=== PATIENT | male | born 1940 | race Caucasian/White ===

== ENCOUNTER 2019-04-26 07:58 | Observation (INO) ==
[2019-04-26] MEDS ORDERED: MIDAZOLAM HCL 5 MG/ML 1 ML VIAL ONE (08:31)
[2019-04-26] MEDS ORDERED: LIDOCAINE HCL 1% 20 ML VIAL ONE (08:31)
[2019-04-26] MEDS ORDERED: fentaNYL citrate 100 MCG/2 ML VIAL ONE ×2 (08:31→09:57)
[2019-04-26] MEDS ORDERED: BACITRACIN INJ 50,000 UNIT VIAL ONE (08:31)
[2019-04-26] MEDS ORDERED: BUPIVACAINE 0.25% 30 ML VIAL ONE (08:31)
[2019-04-26] MEDS ORDERED: CEFAZOLIN 250 MG/ML 1 GM VIAL ONE (08:32)
--- NOTE | 2019-04-26 08:51 | History & Physical Report ---
Date of Service April 26, 2019 Assessment & Plan (1) Atrial fibrillation with slow ventricular response: Some slow rates on Holter. Some mild exercise intolerance. Possible return to sinus rhythm with likely AV conduction disease. Will plan dual chamber device. History of Present Illness Chief Complaint: Bradycardia Primary Care Provider: IMELDA Thompson The patient was discovered incidentally on physical to have atrial fibrillation. He has had some slow ventricular rates. NO syncope but some dizziness. Some mild exercise intolerance manifest by dyspnea. Some limitations due to knee pain. Allergies Allergy/AdvReac Type Severity Reaction Status Date / Time No Known Allergies Allergy Unverified 04/26/19 08:25 Home Medications Home Medications Medication Instructions Recorded Confirmed Type apixaban [Eliquis] 5 mg PO BID 04/26/19 04/26/19 History cholecalciferol (vitamin D3) 25 mcg PO BID 04/26/19 04/26/19 History [Vitamin D3] rosuvastatin 40 mg PO DAILY 04/26/19 04/26/19 History Past Med/Surg History Social History Beliefs That Will Affect Care: None Current Living Situation: Alone Other Information That Helps Us Care for You: No Feels Safe at Home: Yes Safety Concerns: Feels Safe At This Time Smoking Status: Never smoker Hx Alcohol Use: Yes Alcohol type: wine Hx Substance Use: No Review of Systems Review of Systems: Per HPI. Some mild knee pain. Physical Exam Physical Exam: Alert. Appropriate. HEENT: normal. Lungs: clear Cardiac: Irregular. No murmurs Extremities: No edema Results & Data Vital Signs (Past 12 Hours) Vital Signs Temp Pulse Resp BP Pulse Ox 04/26/19 08:10 37.2 C 69 16 152/66 H 96 Diagnostic Findings Echo demonstrates normal LV systolic fucntion
--- NOTE | 2019-04-26 08:52 | Pre Anesthesia Assessment ---
Date of Service April 26, 2019 Pre Sedation Assessment Vital Signs Temp Pulse Resp BP Pulse Ox 04/26/19 08:10 37.2 C 69 16 152/66 H 96 Cardiovascular + irregularly irregular Respiratory + respiratory effort normal Pre-Sedation Airway Assessment Smoking Status: Never smoker Hx Sleep Apnea: No Hx Difficult Intubation: No Short, Thick Neck: No Thyromental Distance: > or= 3.5 Finger Breadths Oral Cavity: + WNL Mallampati Class: III ASA: ASA3 NPO Status Date of Last Intake of Fluids: 04/25/19 Time of Last Intake of Fluids: 18:30 Date of Last Intake of Solid Food: 04/25/19 Time of Last Intake of Solid Foods: 18:30 Procedure Planning Contraindications for Sedation: none Current Medications Reviewed: Yes Notes The planned sedation has been discussed with the patient. Informed Consent was obtained. I have identified the patient, determined the appropriateness of sedation and have assessed the patient immediately prior to the procedure. All medicine(s) and interventions are by my order.
--- NOTE | 2019-04-26 10:25 | Post Anesthesia Assessment ---
Date of Service April 26, 2019 Post Sedation Assessment Vital Signs Temp Pulse Resp BP Pulse Ox 04/26/19 08:10 37.2 C 69 16 152/66 H 96 Recovery Score Activity: Moves 4 extremities Respiration: Deep Breath/Cough Circulation: +/-20% PreAnes Value Consciousness: Fully Awake Oxygen Saturation: > 92% On Room Air Discharge Sedation Level of Care: Fast Track Phase II Post Sedation Plan On clinical assessment, the patient appears to have tolerated the sedation without complications. Patient is recovering as anticipated. Patient will continue to be monitored by nursing and may be discharged when sedation discharge criteria are met per below protocol. Upon Completions of procedure up to 15 minutes continue every 5 minute vital signs and the P.A.R. score; then discharge to a Phase I or Fast Track to Phase II per the following guidelines: * Discharge Patient to appropriate Phase II area if PAR is 8 or greater or return to pre- procedure baseline. The post - procedure orders will be as directed. * If PAR score is less than 8 or not return to pre-procedure baseline then patient will follow Phase I monitoring till PAR is reached for Phase II. The Phase I may be done in procedure room or may call to secure a Phase I area. * If naloxone or flumazenil are used for reversal, hold in Phase I for continued monitoring from when last reversal dose was given for a minimum of 60 minutes or longer pending the nurse and/or physician discretion of patient condition before discharge to Phase II. Please call the Sedation Physician to re-evaluate and complete post-note for discharge to Phase II area. Do NOT discharge from procedure sedation or Phase 1 until post- sedation evaluation note is complete by procedure /sedation MD Sedation Discharge Instructions to be given to the patient at discharge to home.
[2019-04-26] MEDS ORDERED: OXYCODONE HCL IR 5 MG TAB (IMMEDIATE RELEASE) PO PRN (10:29)
[2019-04-26] MEDS ORDERED: ACETAMINOPHEN 325 MG TAB PO PRN (10:29)
--- NOTE | 2019-04-26 10:29 | Procedure Note ---
Procedure Note Date of Service April 26, 2019 Note Procedure performed: Implantation of dual-chamber permanent pacemaker Staff bladder trimmer: Ulises Pizarro MD Indication: The patient is a 78-year-old gentleman with newly discovered atrial fibrillation and associated slow ventricular rates. He does have some element of exercise intolerance and heart rates less than 40 at rest. Based on the symptoms he is felt be good candidate for permanent pacing due to symptomatic nonreversible AV node dysfunction. Dual-chamber device was selected as there may be an opportunity for cardioversion and anglican of sinus rhythm. In that setting we will maintain AV synchrony and provide atrial therapies. Procedure in detail: The patient was informed of the risks benefits and alternatives to the intended procedure and she wished to proceed. He was taken to the electrophysiology suite in a fasting state. A preoperative antibiotic had been administered. The patient was monitored electrocardiographically throughout today's procedure and conscious sedation was administered per protocol. The left upper pectoral area is prepped and draped in usual sterile fashion. This area was anesthetized using subcutaneous administration of a xylocaine solution. An incision was made at this site and carried down to the prepectoralis fascia using sharp dissection. Electrocautery was also employed for dissection as well as for hemostasis. A device pocket was fashioned tissues above the pectoralis muscle. Subsequent to this maneuver the left axillary vein was accessed using modified Seldinger technique. Sheaths were placed over guidewires at this site and used to facilitate passage of the pacing leads to the respective chambers under fluoroscopic guidance. This included right atrial and right ventricular leads. Adequate sensing and threshold parameters were obtained prior to Active fixation of the leads to the endocardial surface. The proximal portion leads were then sutured the prepectoral fascia using nonabsorbable suture. The device pocket was irrigated with antibiotic solution. The leads were then attached to the device. The device and leads were then placed in the pocket and pocket was closed in 3 layers of absorbable suture. Steri-Strips and sterile dressing were applied. The device was tested noninvasively prior to conclusion the procedure. The patient tolerated procedure well there no immediate complications. Equipment used: New pulse generator: Medical [employer]. Model number: [id number] serial number [id number] Right atrial lead: Medical Genetics Director [employer]. Model number: [id number] serial number [id number] Right ventricular lead: Medical [employer] Director [employer]. Model number: 5076 serial number [id number] Measured data: Right atrial lead: Patient was in atrial fibrillation at the time of the procedure. Fib waves measure 0.5 mV. Pacing impedance was 475 ohms Right ventricular lead: R waves measured 11.25 mV. Pacing threshold was 0.875 V at 0.4 ms with a pacing impedance of 646 ohms Impression: Successful implantation of dual-chamber permanent pacemaker Coding
[2019-04-26] MEDS: CEFAZOLIN 2000MG 2,000 MG/15 ML SYR IV SCH (17:58)
[2019-04-27] MEDS: CEFAZOLIN 2000MG 2,000 MG/15 ML SYR IV SCH ×2 (02:57→10:34)
--- NOTE | 2019-04-27 07:50 | XRay Report ---
XR chest 2V PA/lateral CLINICAL HISTORY: Chest x-ray for pacemaker placement COMPARISON STUDY: No previous studies for comparison. FINDINGS: There is a left subclavian dual-chamber central venous pacemaker present. Electrode positio n is unremarkable. There is no pneumothorax. There is no failure. There is no lobar consolidation. Pa renchymal opacities at the level the right cardiophrenic angle nonspecific likely represent atelectas is or scarring. IMPRESSION: No evidence of pneumothorax status post placement of a left subclavian dual-chamber centr al venous pacemaker. Electronically signed by: Mateo Coates M.D. 04/27/2019 7:49 AM
[2019-04-27] MEDS ORDERED: ROSUVASTATIN CALCIUM 20 MG TAB PO SCH (09:00)
--- NOTE | 2019-04-27 16:44 | Discharge Summary ---
Date of Service April 27, 2019 Admission HPI Per Admitting Provider The patient was discovered incidentally on physical to have atrial fibrillation. He has had some slow ventricular rates. NO syncope but some dizziness. Some mild exercise intolerance manifest by dyspnea. Some limitations due to knee pain. Principal Diagnosis q Discharge Exam Device implant site appear to be healing well. Minor ecchymoses. No erythema. No hematoma. No drainage. Discharge Data Allergies Allergy/AdvReac Type Severity Reaction Status Date / Time No Known Allergies Allergy Unverified 04/26/19 08:25 Procedures Performed Operation Date: 04/26/19 09:00 Actual Procedures p Pacer with A/V Leads (Dual) - Riki Pizarro MD Ordered Studies 04/26/19 06:42 CL Cath Imgs for PACS use only Routine Hospital Course (1) Atrial fibrillation with slow ventricular response: On the day of admission the patient underwent implantation of dual-chamber permanent pacemaker. There were no immediate complications. The following morning he was noted to have a normal chest x-ray without evidence of complication. Device interrogation revealed normal function of both the atrial and ventricular leads. Total Time Total Time Spent Total Time Spent (In Minutes): 10 Total Time Includes: Examination of the Patient, Discharge Planning and Medication Reconciliation Discharge Plan Discharge Items Patient Disposition: Home - Self-Care Reason For Visit: DCP Discharge Diagnosis: Symptomatic bradycardia Activity: Per Instructions section Activity Comment: No lifting left arm above the shoulder or behind the neck for 6 weeks Lifting: No more than 10 pounds Bathing: Keep incision dry Bathing Comment: Keep incision dry and Steri-Strips intact until follow-up next week. Driving/Machine Use: Resume 1 day after discharge Non-emergency contact: Sampler Tester Call non-emergency contact if: your pain is worsening, you have a fever, your wound has increased redness, your wound has increased drainage and your wound pain has increased Follow-up/Referrals: Mena Whittaker CRNP [Primary Care Provider] - Diet: Heart Healthy Addtl Attending Provider Instructions: Resume Eliquis tomorrow, 04/28/2019 Pending Studies at Discharge: No Stand-Alone Forms: My [employer], Smoking Cessation Medications and DC Order Prescriptions: Continued Eliquis 5 mg Tablet 5 mg PO BID RF: 0 rosuvastatin 40 mg Tablet 40 mg PO DAILY RF: 0 cholecalciferol (vitamin D3) [Vitamin D3] 25 mcg (1,000 unit) Tablet 25 mcg PO BID RF: 0 Discharge Orders: Discharge Order (Routine); Ordered 04/27/19 Ordered By: Riki Pizarro Admission Data Admit Date/Time: 04/26/19 09:44 Attending Provider: Riki Pizarro Admit Provider: Riki Pizarro Primary Care Provider: eMna Whittaker Other Interventions: Discharge Summary Assessment (RN) Last Done: 04/27/19 10:51 DC Date/Time DO NOT enter until pt leaves facility: 04/27/19 11:15
== END 2019-04-27 11:15 | disposition home or self-care (01) ==
LOC: 2S 07:58 → EP 07:58

== ENCOUNTER 2019-12-29 16:51 | Inpatient (IN) ==
--- NOTE | 2019-12-29 17:15 | XRay Report ---
XR chest 1V portable CLINICAL HISTORY: Atypical chest pain COMPARISON STUDY: 04/27/2019 FINDINGS: The heart is the upper limits of normal in size. There is mild elevation of interstitium. T here is a small right pleural effusion. There are bibasilar nodular airspace opacities. Diagnostic co nsiderations include pneumonia, metastatic disease, drug reaction, or atypical appearance of pulmonar y edema. Clinical and radiographic follow-up is recommended.[ IMPRESSION: 1. Bilateral nodular airspace opacities within the lower lung zones bilaterally. Diagnostic considera tions include pneumonia, metastatic disease, drug reaction, or atypical appearance of pulmonary edema . 2. Small right pleural effusion 3. Clinical and radiographic follow-up is advocated ACT 112: Negative or not required by law. Electronically signed by: Mateo Coates M.D. 12/29/2019 5:14 PM
--- NOTE | 2019-12-29 17:21 | Emergency Department Note ---
Impression & Plan Metastatic cancer, Colon cancer, Transaminitis, Elevated bilirubin ED Provider Note NAME: REGINALD REGAN AGE: 79 SEX: M : 1940 ARRIVES VIA: Walk-In INFORMANT: Patient ED PROVIDER(S): Blair Costa DO CHIEF COMPLAINT: Left shoulder and neck pain as well as abdominal pain HPI: Patient is a 79-year-old male with a past medical history of hyperlipidemia , A. fib with a pacemaker and hypertension who presents the ER for abdominal pain and left neck and shoulder pain. About 3 weeks ago he started with left neck and shoulder pain. He was initially worse with movement of his head. Notes also worse with movement of the left upper extremity. Is tender to palpation. He has not taken anything for this pain. It improves with rest. Describes the pain as an 8 out of 10. Is sharp and stabbing. He denies any numbness or weakness. He has abdominal pain which is been present for the past week. Is periumbilical. He notes that he fills up a lot quicker than usual. He denies any vomiting or diarrhea. Bowel movement in the past 24 hours. He also admits to dysuria which is been present for the past week as well. No urgency or frequency. ROS: See above HPI for pertinent positives & negatives. A total of 10 systems r eviewed and were otherwise negative. PAST MEDICAL HISTORY:See Below PAST SURGICAL HISTORY:See Below FAMILY HISTORY:See Below SOCIAL HISTORY:See Below HOME MEDICATIONS:See Below ALLERGIES:See Below VITALS:See Below PHYSICAL EXAMINATION: GENERAL: Sitting up in bed, alert, well appearing, well nourished, no distress, non-toxic EYE EXAM: normal conjunctiva. OROPHARYNX: no exudate, no erythema, lips, buccal mucosa, and tongue normal and mucous membranes are moist NECK: Tenderness throughout the left paraspinal cervical region tracking to the left humeral head. Worse with axial rotation flexion-extension of the head. LUNGS: Clear to auscultation. Normal chest wall mechanics HEART: no murmurs, S1 normal and S2 normal ABDOMEN: abdomen soft, non-tender, normo-active bowel sounds, no masses, no rebound or guarding. BACK: Back is symmetrical on inspection and there is no deformity, no midline tenderness, no CVA tenderness. SKIN: no rashes and no bruising UPPER EXTREMITIES: Flexion-extension of the left shoulder, elbow wrist and grasp 5 out of 5. Radial pulse 2 out of 4. Mild amount of pain with range of motion of left shoulder including abduction and flexion extension of the shoulder as well as palpation of the proximal humeral head LOWER EXTREMITIES: No pitting edema. NEURO EXAM: Normal sensorium, cranial nerves II-XII grossly intact, normal speech, no gross weakness of arms, no gross weakness of legs. MEDICAL DECISION MAKING: Patient is a 79-year-old male who presents the ER for left shoulder pain and abdominal pain. Shoulder pain is worse with movement of the neck and now left upper extremity. Acutely tender throughout the musculature. Consistent with musculoskeletal pain. Abdominal pain has been getting worse. IV was established blood work was obtained. Labs show no significant leukocytosis or anemia. INR was unremarkable. BMP with a slightly low calcium. LFTs were significantly elevated at 350 and 152. Bilirubin is now elevated at 3. It was previously unremarkable. Troponin was negative. UA with bilirubin. CT abdomen pelvis shows likely metastatic disease. Chest x-ray showed infiltrates in the chest versus metastatic disease. Gallbladder was unremarkable. With a fever of 37.9, worsening transaminitis and elevated bilirubin question if there could be a retained stone although unlikely with a normal CT. Did feel was prudent for further evaluation. Patient was given IV antibiotics. Admitted for further work-up. Triage Nursing notes reviewed. Prior medical records reviewed Vital Signs: reviewed and remarkable for febrile Differential diagnosis: Differential diagnosis includes etiologies such as sepsis, UTI, pneumonia, metabolic, electrolyte abnormalities, cardiac sources, intracerebral event, toxicologic, neurological, as well as others were entertained. ER treatment provided: See below Diagnostics interpreted by me: ECG: Ventricularly paced rate 81 Left axis DWI in septal leads No PVCs Prolonged QTC Cardiac Monitoring: An order was placed for continuous cardiac monitoring. The monitor shows a rate of 82 with sinus rhythm. Laboratory studies: As stated above and show below. Imaging studies: CT abdomen pelvis with metastatic disease and multiple other findings. Consultation(s): Discussed with the hospitalist for admission. ED COURSE: Procedures: none Critical Care: None Past Med/Surg History Medical History (Updated 12/29/19 @ 20:33 by Blair Costa DO) Pacemaker 2019 Social History (Updated 12/26/19 @ 14:05 by Amena Andrews RN) Smoking Status: Never smoker Hx Alcohol Use: Yes Alcohol type: wine Alcohol type Comment: 2 vu a day Alcohol Intake Frequency: 4 or More x per/Week Hx Substance Use: No Preferred Language: Austrian Beliefs That Will Affect Care: None marital status: Current Living Situation: Alone current occupational status: retired How many Children do You have: 0 Feels Safe at Home: Yes Allergies Allergies Allergy/AdvReac Type Severity Reaction Status Date / Time No Known Drug Allergies Allergy Verified 12/29/19 18:00 Home Meds Home Medications Medication Instructions Recorded Confirmed Eliquis 5 mg PO BID 04/26/19 12/29/19 cholecalciferol (vitamin D3) 25 mcg PO BID 04/26/19 12/29/19 [Vitamin D3] omeprazole 40 mg capsule,delayed 40 mg PO DAILY 12/26/19 12/29/19 release Results & Data (ED) Vital Signs Vital Signs - 24 hr 12/29/19 16:53 12/29/19 17:02 12/29/19 17:10 Temperature 37.9 C H Temperature Source Oral Pulse Rate 96 H 83 78 Pulse Rate [Right Finger] Pulse Rate from SpO2 Sensor Respiratory Rate 18 Respiratory Effort / Characteristics Respiratory Depth Blood Pressure 120/80 Blood Pressure [Right Arm] Blood Pressure Mean 93 Blood Pressure Mean [Right Arm] Pulse Oximetry 95 Oxygen Delivery Method Room Air Room Air Room Air Sepsis Recent Fever Within 48 Hours No Sepsis New/Unexplained Change in Mental Status No Sepsis Action Taken by Nursing No Action Required 12/29/19 17:17 12/29/19 17:20 12/29/19 17:30 Temperature Temperature Source Pulse Rate 79 80 Pulse Rate [Right Finger] Pulse Rate from SpO2 Sensor 74 82 72 Respiratory Rate Respiratory Effort / Characteristics Respiratory Depth Blood Pressure 115/70 Blood Pressure [Right Arm] Blood Pressure Mean 75 Blood Pressure Mean [Right Arm] Pulse Oximetry 96 96 95 Oxygen Delivery Method Room Air Room Air Room Air Sepsis Recent Fever Within 48 Hours Sepsis New/Unexplained Change in Mental Status Sepsis Action Taken by Nursing 12/29/19 17:31 12/29/19 17:40 12/29/19 17:50 Temperature Temperature Source Pulse Rate 73 Pulse Rate [Right Finger] 72 Pulse Rate from SpO2 Sensor 73 79 Respiratory Rate 20 Respiratory Effort / Characteristics Non-Labored Respiratory Depth Normal Blood Pressure Blood Pressure [Right Arm] 115/70 Blood Pressure Mean Blood Pressure Mean [Right Arm] 85 Pulse Oximetry 96 96 96 Oxygen Delivery Method Room Air Room Air Room Air Sepsis Recent Fever Within 48 Hours Sepsis New/Unexplained Change in Mental Status Sepsis Action Taken by Nursing 12/29/19 17:56 12/29/19 18:00 12/29/19 18:01 Temperature Temperature Source Pulse Rate 94 H 71 70 Pulse Rate [Right Finger] Pulse Rate from SpO2 Sensor Respiratory Rate 29 H Respiratory Effort / Characteristics Respiratory Depth Blood Pressure 98/81 L 122/87 Blood Pressure [Right Arm] Blood Pressure Mean 86 92 Blood Pressure Mean [Right Arm] Pulse Oximetry Oxygen Delivery Method Room Air Room Air Room Air Sepsis Recent Fever Within 48 Hours Sepsis New/Unexplained Change in Mental Status Sepsis Action Taken by Nursing 12/29/19 18:10 12/29/19 18:30 12/29/19 19:12 Temperature Temperature Source Pulse Rate 70 85 Pulse Rate [Right Finger] 86 Pulse Rate from SpO2 Sensor 73 78 Respiratory Rate 24 22 19 Respiratory Effort / Characteristics Non-Labored Spontaneous Respiratory Depth Normal Blood Pressure Blood Pressure [Right Arm] 146/73 H Blood Pressure Mean Blood Pressure Mean [Right Arm] 97 Pulse Oximetry 96 97 95 Oxygen Delivery Method Room Air Room Air Room Air Sepsis Recent Fever Within 48 Hours Sepsis New/Unexplained Change in Mental Status Sepsis Action Taken by Nursing Laboratory Data Result diagrams: 12/29/19 17:25 12/29/19 17:25 Lab Results 12/29/19 12/29/19 12/29/19 Range/Units 17:25 17:25 17:25 WBC 10.36 (4.8-10.8) K/uL RBC 4.63 L (4.7-6.1) M/uL Hgb 13.6 L (14.0-18.0) g/dL Hct 39.8 L (42-52) % MCV 86.0 (80-100) fL MCH 29.4 (25-34) pg MCHC 34.2 (32-36) g/dL RDW Std Deviation 49.0 H (36.4-46.3) fL RDW Coeff of Marcel 15.6 H (11.5-14.5) % Plt Count 472 H (130-400) K/uL MPV 10.9 H (7.4-10.4) fL Immature Gran % (Auto) 0.5 % Neut % (Auto) 68.5 % Lymph % (Auto) 18.8 % [place] % (Auto) 11.8 % Eos % (Auto) 0.3 % Baso % (Auto) 0.1 % Neut # (Auto) 7.10 H (1.4-6.5) K/uL Lymph # (Auto) 1.95 (1.2-3.4) K/uL [place] # (Auto) 1.22 H (0.11-0.59) K/uL Eos # (Auto) 0.03 (0-0.5) K/uL Baso # (Auto) 0.01 (0-0.2) K/uL Immature Gran # (Auto) 0.05 H (0.00-0.02) K/uL PT 11.8 (9.0-12.0) Seconds INR 1.1 (0.9-1.1) APTT 30.5 (21.0-31.0) Seconds PTT Ratio 1.1 Sodium 136 (136-145) mmol/L Potassium 4.0 (3.5-5.1) mmol/L Chloride 104 (98-107) mmol/L Carbon Dioxide 24 (21-32) mmol/L Anion Gap 8.0 (3-11) BUN 13 (7-18) mg/dl Creatinine 0.95 (0.6-1.4) mg/dl Est Cr Clr Drug Dosing 65.1 ml/min Est GFR ( Amer) 87.9 Est GFR (Non-Af Amer) 75.8 BUN/Creatinine Ratio 13.7 (10-20) Glucose 98 (70-99) mg/dl Calcium 8.4 L (8.5-10.1) mg/dl Total Bilirubin 2.9 H (0.2-1) mg/dl AST 351 H (15-37) U/L ALT 152 H (12-78) U/L Alkaline Phosphatase 950 H (45-117) U/L Troponin I < 0.015 (0-0.045) ng/ml Total Protein 6.5 (6.4-8.2) gm/dl Albumin 2.3 L (3.4-5.0) gm/dl Globulin 4.2 H (2.5-4.0) gm/dl Albumin/Globulin Ratio 0.5 L (0.9-2) Lipase 150 (73-393) U/L Urine Color Urine Appearance (Clear) Urine pH (4.5-7.5) Ur Specific [place] (1.000-1.030) Urine Protein (Negative) Urine Glucose (UA) (Negative) Urine Ketones (Negative) Urine Blood (Negative) Urine Nitrite (Negative) Urine Bilirubin (Negative) Urine Urobilinogen (Negative) Ur Leukocyte Esterase (Negative) 12/29/19 Range/Units 19:20 WBC (4.8-10.8) K/uL RBC (4.7-6.1) M/uL Hgb (14.0-18.0) g/dL Hct (42-52) % MCV (80-100) fL MCH (25-34) pg MCHC (32-36) g/dL RDW Std Deviation (36.4-46.3) fL RDW Coeff of Marcel (11.5-14.5) % Plt Count (130-400) K/uL MPV (7.4-10.4) fL Immature Gran % (Auto) % Neut % (Auto) % Lymph % (Auto) % [place] % (Auto) % Eos % (Auto) % Baso % (Auto) % Neut # (Auto) (1.4-6.5) K/uL Lymph # (Auto) (1.2-3.4) K/uL [place] # (Auto) (0.11-0.59) K/uL Eos # (Auto) (0-0.5) K/uL Baso # (Auto) (0-0.2) K/uL Immature Gran # (Auto) (0.00-0.02) K/uL PT (9.0-12.0) Seconds INR (0.9-1.1) APTT (21.0-31.0) Seconds PTT Ratio Sodium (136-145) mmol/L Potassium (3.5-5.1) mmol/L Chloride (98-107) mmol/L Carbon Dioxide (21-32) mmol/L Anion Gap (3-11) BUN (7-18) mg/dl Creatinine (0.6-1.4) mg/dl Est Cr Clr Drug Dosing ml/min Est GFR ( Amer) Est GFR (Non-Af Amer) BUN/Creatinine Ratio (10-20) Glucose (70-99) mg/dl Calcium (8.5-10.1) mg/dl Total Bilirubin (0.2-1) mg/dl AST (15-37) U/L ALT (12-78) U/L Alkaline Phosphatase (45-117) U/L Troponin I (0-0.045) ng/ml Total Protein (6.4-8.2) gm/dl Albumin (3.4-5.0) gm/dl Globulin (2.5-4.0) gm/dl Albumin/Globulin Ratio (0.9-2) Lipase (73-393) U/L Urine Color [place] Urine Appearance Clear (Clear) Urine pH 5.0 (4.5-7.5) Ur Specific [place] 1.015 (1.000-1.030) Urine Protein Negative (Negative) Urine Glucose (UA) Negative (Negative) Urine Ketones Negative (Negative) Urine Blood Negative (Negative) Urine Nitrite Negative (Negative) Urine Bilirubin 2+ H (Negative) Urine Urobilinogen Positive H (Negative) Ur Leukocyte Esterase Negative (Negative) Administered Medications Discontinued Medications Sodium Chloride (Nss 1000ml) 1,000 mls @ 999 mls/hr IV .Q1H1M ONE Stop: 12/29/19 20:08 Last Admin: 12/29/19 19:19 Dose: 999 mls/hr Documented by: [id number] Ioversol (Ioversol 100ml) 93 ml IV ONCE ONE Stop: 12/29/19 18:24 Last Admin: 12/29/19 18:24 Dose: 93 ml Documented by: [id number] Discharge Plan Visit Data Chief Complaint: Chest Pain Stated Complaint: CHEST PAIN, LEFT ARM PAIN, CARDIAC Hx ED Provider: Blair Costa Discharge Problem: Metastatic cancer, Colon cancer, Transaminitis, Elevated bilirubin Forms Stand Alone Forms: [facility] Prescriptions Prescriptions: No Action omeprazole 40 mg capsule,delayed release(DR/EC) 40 mg PO DAILY RF: 0 Eliquis 5 mg Tablet 5 mg PO BID RF: 0 cholecalciferol (vitamin D3) [Vitamin D3] 25 mcg (1,000 unit) Tablet 25 mcg PO BID RF: 0 Discharge Problem: Metastatic cancer Qualifiers: Area of secondary neoplastic involvement: unspecified site Qualified Code(s): C79.9 - Secondary malignant neoplasm of unspecified site Colon cancer Qualifiers: Colon location: unspecified part of colon Qualified Code(s): C18.9 - Malignant neoplasm of colon, unspecified
[2019-12-29 17:37] LABS: Basophils # (auto) 0.01 K/uL (0-0.2); Basophils % (auto) 0.1 %; Eosinophils # (auto) 0.03 K/uL (0-0.5); Eosinophils % (auto) 0.3 %; Hematocrit (blood only) 39.8 % (42-52); Hemoglobin 13.6 g/dL (14.0-18.0); Immature Granulocytes # (auto) 0.05 K/uL (0.00-0.02); Immature Granulocytes % (auto) 0.5 %; Lymphocytes # (auto) 1.95 K/uL (1.2-3.4); Lymphocytes % (auto) 18.8 %; Mean Corpuscular Hemoglobin 29.4 pg (25-34); Mean Corpuscular Hgb Conc 34.2 g/dL (32-36); Mean Platelet Volume 10.9 fL (7.4-10.4); Monocytes # (auto) 1.22 K/uL (0.11-0.59); Monocytes % (auto) 11.8 %; Neutrophils % (auto) 68.5 %; Platelet Count 472 K/uL (130-400); RDW Coefficient of Variation 15.6 % (11.5-14.5); Red Blood Count 4.63 M/uL (4.7-6.1); White Blood Count 10.36 K/uL (4.8-10.8)
[2019-12-29 17:47] LABS: INR 1.1 (0.9-1.1); Partial Thromboplastin Ratio 1.1; Partial Thromboplastin Time 30.5 Seconds (21.0-31.0); Prothrombin Time 11.8 Seconds (9.0-12.0)
[2019-12-29 17:52] LABS: Alanine Aminotransferase 152 U/L (12-78); Albumin Level 2.3 gm/dl (3.4-5.0); Aspartate Aminotransferase 351 U/L (15-37); BUN Creatinine Ratio 13.7 (10-20); Blood Urea Nitrogen 13 mg/dl (7-18); Calcium 8.4 mg/dl (8.5-10.1); Carbon Dioxide 24 mmol/L (21-32); Chloride 104 mmol/L (98-107); Creatinine Clr Calc Pharmacy 65.1 ml/min; Est GFR (African American) 87.9; Est GFR (Non-African American) 75.8; Glucose 98 mg/dl (70-99); Lipase 150 U/L (73-393); Sodium 136 mmol/L (136-145)
[2019-12-29 17:57] LABS: Albumin Globulin Ratio 0.5 (0.9-2); Alkaline Phosphatase 950 U/L (45-117); Bilirubin,Total 2.9 mg/dl (0.2-1); Globulin 4.2 gm/dl (2.5-4.0); Total Protein 6.5 gm/dl (6.4-8.2); Troponin I < 0.015 ng/ml (0-0.045)
[2019-12-29] MEDS ORDERED: IOVERSOL 100ml IV ONE ×2 (18:23)
--- NOTE | 2019-12-29 18:43 | CT Scan Report ---
CT abd pelvis IV con only CLINICAL HISTORY: Fever, periumbilical abdominal pain COMPARISON STUDY: 11/29/2019 TECHNIQUE: Patient was scanned in a dynamic helical fashion during intravenous administration of 93 c c of Optiray 320. A dose lowering technique was utilized adhering to the principles of ALARA. CT DOSE: 715.97 mGy.cm FINDINGS: Lower chest: There is been interval increase in the size and number of the multiple bilateral pulmona ry nodules suspicious for metastatic disease. There is a small right pleural effusion. Liver: There is interval increase in the size and number of the multiple space-occupying hepatic mass es indicative of metastatic disease. Gallbladder: The gallbladder is normal in size with pericholecystic edema Spleen: Mildly enlarged measuring 13.4 cm Pancreas: No intrinsic pancreatic masses are visualized Adrenal glands: Unremarkable. Kidneys: There are persistent large left renal cysts measuring up to 14 cm in diameter. Bowel: There is a 6 cm mass involving the proximal ascending colon. There is no evidence of acute div erticulitis. There is no evidence of acute appendicitis. Peritoneum: There is low volume ascites. There is no free air. There is a fat-containing umbilical he rnia. There is a soft tissue nodule within the left anterior abdominal wall in the periumbilical loca tion possibly representing a metastatic deposit. Vasculature: The abdominal aorta is normal in course and caliber. Adenopathy: There are enlarged lymph nodes in the gastrohepatic ligament, yevgeniy hepatis, celiac regio n, and aortocaval region. Pelvic viscera: The prostate is enlarged Skeletal structures: There is bilateral L5 spondylolysis. There is a grade 2/4 spondylolisthesis of L 5 on S1. IMPRESSION: 1. Significant interval progression in the multiple pulmonary masses consistent with metastatic disea se. Interval development of a small right pleural effusion 2. Progressive diffuse hepatic metastasis 3. Persistent portal, celiac, gastrohepatic ligament, aortocaval lymphadenopathy, and mesenteric sunni opathy 4. 6 cm mass involving the proximal ascending colon suspicious for neoplasm, with progressive adjacen t mesenteric adenopathy 5. Fat-containing umbilical hernia 6. Large left renal cysts measuring up to 14 cm in diameter 7. No evidence of acute diverticulitis. No evidence of acute appendicitis 8. No evidence of bowel obstruction. No evidence of free air 9. Prostatomegaly 10. Low volume ascites ACT 112: Negative or not required by law. Electronically signed by: Mateo Coates M.D. 12/29/2019 6:42 PM
[2019-12-29] MEDS ORDERED: LEVOFLOXACIN/D5W 750 MG/150 ML BAG IV STA (19:01)
[2019-12-29] MEDS ORDERED: PIPERACILL/TAZOBAC CONSULT ACTIVE PRN ×2 (19:08→23:29)
[2019-12-29] MEDS ORDERED: PIPERACILLIN/TAZOBACTAM 3.375 GM in DEXTROSE 5% 100 ML/100 ML BAG IV STA (19:08)
[2019-12-29] MEDS ORDERED: SODIUM CHLORIDE 0.9% 1000ML 1,000 ML IV ONE (19:08)
[2019-12-29 19:34] LABS: Appearance Urine Clear (Clear); Blood Urine Negative (Negative); Color Urine Amber; Glucose Urine UA Negative (Negative); Ketones Urine Negative (Negative); Leukocyte Esterase Urine Negative (Negative); Nitrite Urine Negative (Negative); Protein Urine Negative (Negative); Specific Gravity Urine 1.015 (1.000-1.030); Urobilinogen Urine Positive (Negative)
[2019-12-29 19:37] LABS: Bilirubin Urine 2+ (Negative)
[2019-12-29 19:39] LABS: Ictotest Urine Positive (Negative)
--- NOTE | 2019-12-29 20:23 | History & Physical Report ---
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 Fever suspected 2/2 Pneumonia ddx includes oncologic fever No leukocytosis, temperature 37.9 on admission CTabdomen shows multiple bilateral pulmonary nodules on the lower lung david, right pleural effusion. Review of images shows diffuse hazy opacities. -Patient received empiric Zosyn/levo in the emergency department -Continue empiric Zosyn for pulmonary coverage in addition to GI coverage in the setting of mild pericholecystic fluid and increasing transaminitis/alkaline [place]ia as below - MRSA nare pending. Procalcitonin ordered. Utility for ruling in pneumonia is low as extensive metastasis and lung cancers are frequently associated with false positives; however, trend may be useful and would be expected to decrease if primary was infectious and adequately treated. Discussed with pharm.. Supplementary oxygen as needed History of A. fib on anticoagulation Patient on Eliquis 5 mg p.o. twice daily for A. fib - Hold DOAC in anticipation of potential port placement Adequate rate control without beta-nicolas/CCB Admit on telemetry Stage 4 Metastatic Colon Adenocarcinoma - Known to oncology - Due to start chemo this week (Tuesday) following port placement which was scheduled for Tuesday Extensive hepatic, pulmonary metastasis Consider discussing case with general surgery in the morning to see if they would like to continue Eliquis hold and pursue port placement while patient admitted Otherwise if medically stable anticipate port placement and chemotherapy initiation this week Coags normal Transaminitis AST/ALT/alk phos increased CT abdomen shows extensive hepatic metastasis in addition to monica-cholecystic fluid Suspect due to malignancy, GI pathogens covered by empiric Zosyn as above CMP daily Prostatomegaly Follow ins and outs, bladder scan if not voiding in the next 4 to 6 hours Renal cyst Persistent large left renal cyst, 14 cm in diameter Continue to follow, no acute intervention dictated at this time Fluids: LR 80 cc/h DVT prophylaxis: Pharmacal prophylaxis held, on Eliquis prior to admission. See above. CODE STATUS: DNR/DNI. 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 Patient reports that he was recently seen by general surgery and oncology and was diagnosed with stage IV adenocarcinoma: Primary as noted above. He was scheduled to hold his Eliquis for anticipated port placement this coming Tuesday and initiation of chemotherapy this coming Tuesday. He reports he has had slowly progressive fatigue and diffuse abdominal discomfort for 2 to 3 weeks, but his energy has decreased and his fatigue has acutely increased in the last 2 to 3 days. He has not had chills or night sweats, is not sure if he has felt feverish. Appetite is decreased. Periumbilical abdominal discomfort progressively increasing. He also endorses left elbow to shoulder pain, left neck pain worse with palpation of the left paraspinal root. Shoulder pain does not change with exercise, and is not associated with increased shortness of breath or diaphoresis. He denies productive cough, endorses intermittent dry cough. Medical history: Reviewed Medications: Reviewed Surgical history: Reviewed Allergies: Reviewed, no known drug allergies Family history: Noncontributory Social: Alcohol: 2 glasses of wine daily with dinner, last drink 24 hours ago, no prior history of tremors/withdrawal/seizures. Denies tobacco and recreational drug use. Reports he lives at home alone and is normally able to ambulate independently. CODE STATUS: DNR/DNI, discussed with patient Allergies Allergy/AdvReac Type Severity Reaction Status Date / Time No Known Drug Allergies Allergy Verified 12/29/19 18:00 Home Medications Home Medications Medication Instructions Recorded Confirmed Type Eliquis 5 mg PO BID 04/26/19 12/29/19 History cholecalciferol (vitamin D3) 25 mcg PO BID 04/26/19 12/29/19 History [Vitamin D3] omeprazole 40 mg capsule,delayed 40 mg PO DAILY 12/26/19 12/29/19 History release Past Med/Surg History Medical History (Updated 12/29/19 @ 20:33 by Blair Costa DO) Pacemaker 2019 Social History (Updated 12/26/19 @ 14:05 by Amena Andrews RN) Smoking Status: Never smoker Hx Alcohol Use: Yes Alcohol type: wine Alcohol type Comment: 2 vu a day Alcohol Intake Frequency: 4 or More x per/Week Hx Substance Use: No Preferred Language: Montenegrin Communication Ability: Effective [employer] Required: No Beliefs That Will Affect Care: None marital status: Current Living Situation: Alone current occupational status: retired How many Children do You have: 0 Feels Safe at Home: Yes Safety Concerns: Feels Safe At This Time Review of Systems Review of Systems: Constitutional: Versus weight loss, fatigue. Denies chills. Eyes: Denies double vision, vision change, eye pain ENT: Denies ear pain, sore throat, sinus pain Cardiovascular: Denies Chest pain, chest pressure, palpitations Respiratory: See HPI Gastrointestinal: See HPI Genitourinary: Denies pain with urination, urinary urgency, urinary frequency Musculoskeletal: See HPI Integumentary:Denies rash, lesions, bruising Neurological: Denies headache, numbness, tingling, focal weakness Physical Exam Physical Exam: General: A&Ox3. NAD. Cooperative. Appears thin, frail HEENT: Atraumatic, normocephalic. Equals equal and reactive to light and accomm odation. Pulm: CTAB A&P. -wheezes, -rales, -rhonchi. Symmetrical chest rise. No increase work of breathing. No respiratory distress. Cardiac: RRR, -mrg. Radial pulses intact and symmetrical. Abdominal: Mild soft distention. Multiple masses/areas of firmness appreciated, most prominent in right upper quadrant and supraumbilically. Mild tenderness to palpation periumbilically, minimal right upper quadrant tenderness. No rebound tenderness. No guarding. Bowel sounds intact. Extremities: Thin. Moving all extremities equally. Sensation to soft touch intact in fingertips and toes bilaterally Results & Data Results & Data ([facility]) Vital Signs (Past 12 Hours) Vital Signs Temp Pulse Pulse Resp BP BP Pulse Ox 12/29/19 19:12 86 19 146/73 H 95 12/29/19 18:30 85 22 97 12/29/19 18:10 70 24 96 12/29/19 18:01 70 29 H 12/29/19 18:00 71 122/87 12/29/19 17:56 94 H 98/81 L 12/29/19 17:50 96 12/29/19 17:40 73 96 12/29/19 17:31 72 20 115/70 96 12/29/19 17:30 95 12/29/19 17:20 80 96 12/29/19 17:17 79 115/70 96 12/29/19 17:10 78 12/29/19 17:02 83 12/29/19 16:53 37.9 C H 96 H 18 120/80 95 Supervising Physician Co-Signing Physician Notes Attending addendum: I have physically seen this patient, have supervised the medical residents activities, and agree with the H&P unless as otherwise noted. Assessment and Plan: Bilateral lower lobe infiltrates suggesting pneumonia/febrile illness- Given Zosyn and levofloxacin IV in ED Continue Zosyn 3.375 mg IV every 8 hours Duonebs every 4 hours while awake and every 2 hours when necessary. Guaifenesin extended release 60 mg p.o. twice daily Zofran 4 mg IV every 6 hours PRN Nasal cannula 2 L oxygen, titrate to keep pulse ox 94 to 95% Atrial fibrillation- The patient will be admitted to telemetry for serial cardiac enzymes, serial EKG's, cardiac rhythm monitoring. Hold Eliquis for potential procedure Stage IV metastatic colon adenocarcinoma Imaging with worsening mets to lung and liver. Consult oncology. Remainder of orders and notations as noted. Resident Activity Tracking Resident Involvement: Resident Care Provided Care Provided: Adult Hospital Medicine
[2019-12-30] MEDS: PIPERACILLIN/TAZOBACTAM 3.375 GM in DEXTROSE 5% 100 ML IV SCH ×3 (00:43→17:52)
[2019-12-30] MEDS: CHOLECALCIFEROL 1,000 UNITS 25 MCG TAB PO SCH ×3 (00:43→20:41)
[2019-12-30] MEDS: LACTATED RINGER'S 1,000 ML IV SCH ×2 (00:43→12:11)
[2019-12-30 06:36] LABS: Basophils # (auto) 0.01 K/uL (0-0.2); Basophils % (auto) 0.1 %; Eosinophils # (auto) 0.06 K/uL (0-0.5); Eosinophils % (auto) 0.6 %; Hemoglobin 12.3 g/dL (14.0-18.0); Immature Granulocytes # (auto) 0.05 K/uL (0.00-0.02); Immature Granulocytes % (auto) 0.5 %; Lymphocytes # (auto) 2.67 K/uL (1.2-3.4); Lymphocytes % (auto) 25.3 %; Mean Corpuscular Hemoglobin 29.4 pg (25-34); Mean Corpuscular Hgb Conc 34.2 g/dL (32-36); Mean Corpuscular Volume 85.9 fL (80-100); Mean Platelet Volume 10.8 fL (7.4-10.4); Monocytes # (auto) 1.38 K/uL (0.11-0.59); Monocytes % (auto) 13.1 %; Neutrophils # (auto) 6.39 K/uL (1.4-6.5); Neutrophils % (auto) 60.4 %; Platelet Count 442 K/uL (130-400); RDW Coefficient of Variation 15.8 % (11.5-14.5); RDW Standard Deviation 49.5 fL (36.4-46.3); Red Blood Count 4.19 M/uL (4.7-6.1); White Blood Count 10.56 K/uL (4.8-10.8)
[2019-12-30 07:17] LABS: Albumin Globulin Ratio 0.6 (0.9-2); BUN Creatinine Ratio 14.5 (10-20); Bilirubin,Total 2.4 mg/dl (0.2-1); Calcium 8.3 mg/dl (8.5-10.1); Creatinine Clr Calc Pharmacy 88.4 ml/min; Est GFR (Non-African American) 89.8; Globulin 3.6 gm/dl (2.5-4.0); Potassium 3.5 mmol/L (3.5-5.1); Total Protein 5.6 gm/dl (6.4-8.2)
[2019-12-30] MEDS: PANTOprazole 40 MG TAB PO SCH (08:21)
[2019-12-30] MEDS ORDERED: Heparin IV Standard *NO* Bolus IV SCH (11:53)
[2019-12-30] MEDS: HEPARIN SODIUM/DEXTROSE 25,000 UNITS/500 ML BAG IV SCH (12:59)
--- NOTE | 2019-12-30 15:46 | Hospitalist Progress Note ---
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 Fevers -Likely secondary to pneumonia process, differential also includes oncologic fever No leukocytosis, temperature 37.9 on admission -CXR: Bilateral nodular airspace opacities within the lower lung zones bilaterally CTabdomen shows multiple bilateral pulmonary nodules on the lower lung david, right pleural effusion. Review of images shows diffuse hazy opacities. -Continue empiric Zosyn for pulmonary coverage in addition to GI coverage in the setting of mild pericholecystic fluid and increasing transaminitis/alk phos as below - MRSA nare negative -Blood cultures pending -Procalcitonin elevated 0.61. Utility for ruling in pneumonia is low as extensive metastasis and lung cancers are frequently associated with false positives; however, trend may be useful and would be expected to decrease if primary was infectious and adequately treated. Will repeat again tomorrow Supplementary oxygen as needed Stage 4 Metastatic Colon Adenocarcinoma - Known to oncology - Due to start chemo this week (Tuesday) following port placement which was scheduled for Tuesday initially Extensive hepatic, pulmonary metastasis Consider discussing case with general surgery in the morning to see if they would like to do continue with original plan of port placement and chemotherapy initiation while patient is inpatient versus home discharge if medically stable moving forward -Patient likely to require negative blood cultures for surgery to consider inpatient port placement Coags normal History of A. fib on anticoagulation Patient on Eliquis 5 mg p.o. twice daily for A. 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 Started heparin GTT today in the interim, this can be quickly reversed if port placement is done inpatient as noted above Adequate rate control without beta-nicolas/CCB Admit on telemetry Transaminitis AST/ALT/alk phos increased CT abdomen shows extensive hepatic metastasis in addition to monica-cholecystic fluid Suspect due to malignancy, GI pathogens covered by empiric Zosyn as above CMP daily Prostatomegaly Follow ins and outs, bladder scan if not voiding well Renal cyst Persistent large left renal cyst, 14 cm in diameter Continue to follow, no acute intervention dictated at this time FEN/GI: LR 80 cc/h DVT prophylaxis: Heparin gtt CODE STATUS: DNR/DNI. Discussed with patient Dispo: Medical/surgical with telemetry Admission and Anticipated Discharge Date Admission Date: December 29, 2019 Supervising Physician Co-Signing Physician Notes Also saw the patient the resident physician and confirmed urbina portions of the history and physical examination. Agree with the impression and plan as noted above. Pleasant 79-year-old male with recently diagnosed stage IV colon adenocarcinoma with with hepatic and pulmonary metastatic disease presented to the emergency department yesterday noting fatigue, anorexia, and fever. Chest x-ray demonstrated bilateral nodular airspace opacities consistent with pneumonia and/or metastatic disease (although pneumonia favored in clinical setting). CT scan of the abdomen pelvis did note increase in size and number of pulmonary nodules and a small right pleural effusion. Patient had a T-max of 38 C on 12/30/2019 at 0330 hours; he has been afebrile since Blood cultures are pending. Fever, suspect pneumonia Continue Pipracil and/tazobactam Await blood culture Metastatic colon adenocarcinoma The patient was to have a port placed on Tuesday at the surgical center with plans to start chemotherapy the following day. Given the interval increase in his metastatic disease in the short interim between his most recent CT scans, would like not to delay placement of port, though obviously he would need negative blood cultures to do so. We will await blood cultures here; consider consulting surgery on Tuesday to possibly coordinate placement of port as inpatient if blood cultures are negative. Atrial fibrillation on anticoagulation His Eliquis is on hold pending port placement We will start heparin drip for therapeutic anticoagulation pending decision on port placement Other diagnoses as noted above Subjective 79-year-old male found in bed this a.m. No acute overnight events. Patient notes that he feels overall improved from admission. Ate breakfast today and is regaining appetite. Patient with no other acute concerns or complaints. Review of Systems Review of Systems: All systems reviewed & are unremarkable except as noted in HPI & below Physical Exam Constitutional: + thin Eyes: PERRL, conjunctivae normal, anicteric sclerae ENMT: external ear and nose normal, oropharynx normal Respiratory: normal respiratory effort, lungs clear to auscultation Cardiovascular: RRR, no murmur, no edema Gastrointestinal (Abdomen): Percussion/Palpation: + abdominal mass (Multiple firm and RUQ and supra umbilically with mild TTP); no guarding Skin: no rashes, warm and dry Psychiatric: A+Ox3, euthymic affect Results & Data Results & Data ([facility]) Vital Signs (Past 12 Hours) Vital Signs Temp Pulse Pulse Resp BP Pulse Ox 12/30/19 11:15 36.8 C 75 18 103/67 95 12/30/19 07:51 71 12/30/19 07:15 36.5 C 76 18 115/71 91 Laboratory Results Laboratory Results - last 24 hr 12/29/19 12/29/19 12/29/19 17:25 17:25 17:25 WBC 10.36 RBC 4.63 L Hgb 13.6 L Hct 39.8 L MCV 86.0 MCH 29.4 MCHC 34.2 RDW Std Deviation 49.0 H RDW Coeff of Marcel 15.6 H Plt Count 472 H MPV 10.9 H Immature Gran % (Auto) 0.5 Neut % (Auto) 68.5 Lymph % (Auto) 18.8 [place] % (Auto) 11.8 Eos % (Auto) 0.3 Baso % (Auto) 0.1 Neut # (Auto) 7.10 H Lymph # (Auto) 1.95 [place] # (Auto) 1.22 H Eos # (Auto) 0.03 Baso # (Auto) 0.01 Immature Gran # (Auto) 0.05 H PT 11.8 INR 1.1 APTT 30.5 PTT Ratio 1.1 Sodium 136 Potassium 4.0 Chloride 104 Carbon Dioxide 24 Anion Gap 8.0 BUN 13 Creatinine 0.95 Est Cr Clr Drug Dosing 65.1 Est GFR ( Amer) 87.9 Est GFR (Non-Af Amer) 75.8 BUN/Creatinine Ratio 13.7 Glucose 98 Calcium 8.4 L Total Bilirubin 2.9 H AST 351 H ALT 152 H Alkaline Phosphatase 950 H Troponin I < 0.015 Total Protein 6.5 Albumin 2.3 L Globulin 4.2 H Albumin/Globulin Ratio 0.5 L Lipase 150 Procalcitonin Urine Color Urine Appearance Urine pH Ur Specific [place] Urine Protein Urine Glucose (UA) Urine Ketones Urine Blood Urine Nitrite Urine Bilirubin Urine Urobilinogen Ur Leukocyte Esterase Nasal Screen MRSA (PCR) 12/29/19 12/29/19 12/30/19 17:25 19:20 05:58 WBC 10.56 RBC 4.19 L Hgb 12.3 L Hct 36.0 L MCV 85.9 MCH 29.4 MCHC 34.2 RDW Std Deviation 49.5 H RDW Coeff of Marcel 15.8 H Plt Count 442 H MPV 10.8 H Immature Gran % (Auto) 0.5 Neut % (Auto) 60.4 Lymph % (Auto) 25.3 [place] % (Auto) 13.1 Eos % (Auto) 0.6 Baso % (Auto) 0.1 Neut # (Auto) 6.39 Lymph # (Auto) 2.67 [place] # (Auto) 1.38 H Eos # (Auto) 0.06 Baso # (Auto) 0.01 Immature Gran # (Auto) 0.05 H PT INR APTT PTT Ratio Sodium Potassium Chloride Carbon Dioxide Anion Gap BUN Creatinine Est Cr Clr Drug Dosing Est GFR ( Amer) Est GFR (Non-Af Amer) BUN/Creatinine Ratio Glucose Calcium Total Bilirubin AST ALT Alkaline Phosphatase Troponin I Total Protein Albumin Globulin Albumin/Globulin Ratio Lipase Procalcitonin 0.61 H Urine Color [place] Urine Appearance Clear Urine pH 5.0 Ur Specific [place] 1.015 Urine Protein Negative Urine Glucose (UA) Negative Urine Ketones Negative Urine Blood Negative Urine Nitrite Negative Urine Bilirubin 2+ H Urine Urobilinogen Positive H Ur Leukocyte Esterase Negative Nasal Screen MRSA (PCR) 12/30/19 12/30/19 05:58 06:20 WBC RBC Hgb Hct MCV MCH MCHC RDW Std Deviation RDW Coeff of Marcel Plt Count MPV Immature Gran % (Auto) Neut % (Auto) Lymph % (Auto) [place] % (Auto) Eos % (Auto) Baso % (Auto) Neut # (Auto) Lymph # (Auto) [place] # (Auto) Eos # (Auto) Baso # (Auto) Immature Gran # (Auto) PT INR APTT PTT Ratio Sodium 138 Potassium 3.5 Chloride 106 Carbon Dioxide 22 Anion Gap 10.0 BUN 10 Creatinine 0.70 Est Cr Clr Drug Dosing 88.4 Est GFR ( Amer) 104.0 Est GFR (Non-Af Amer) 89.8 BUN/Creatinine Ratio 14.5 Glucose 90 Calcium 8.3 L Total Bilirubin 2.4 H AST 281 H ALT 130 H Alkaline Phosphatase 813 H Troponin I Total Protein 5.6 L Albumin 2.0 L Globulin 3.6 Albumin/Globulin Ratio 0.6 L Lipase Procalcitonin Urine Color Urine Appearance Urine pH Ur Specific [place] Urine Protein Urine Glucose (UA) Urine Ketones Urine Blood Urine Nitrite Urine Bilirubin Urine Urobilinogen Ur Leukocyte Esterase Nasal Screen MRSA (PCR) Negative Medications Administered Current Inpatient Medications Piperacillin Sod/Tazobactam (Sod 3.375 gm/ Dextrose) 115 mls @ 28.75 mls/hr IV Q8H [facility]; Protocol Stop: 01/01/20 01:59 Last Infusion: 12/30/19 12:44 Dose: Infused Documented by: Lactated Ringer's (Lr) 1,000 mls @ 80 mls/hr IV .[id number] [facility] Stop: 01/28/20 23:28 Last Admin: 12/30/19 12:11 Dose: 80 mls/hr Documented by: Heparin Sodium/Dextrose (Heparin Sodium/Dextrose) 25,000 units in 500 mls @ 27 mls/hr IV .[id number] [facility]; Protocol Stop: 01/29/20 12:29 Last Admin: 12/30/19 12:59 Dose: 1,350 units/hr, 27 mls/hr Documented by: Miscellaneous Information (Piperacill/Tazobac Consult Active) 1 ea N/A UD PRN PRN Reason: Consult Stop: 01/28/20 23:28 Pantoprazole Sodium (Pantoprazole 40 Mg Tab) 40 mg PO DAILY [facility] Stop: 01/29/20 08:59 Last Admin: 12/30/19 08:21 Dose: 40 mg Documented by: Vitamin D (Cholecalciferol 1,000 Units 25 Mcg Tab) 1,000 units PO BID [facility] Stop: 01/28/20 23:28 Last Admin: 12/30/19 08:21 Dose: 1,000 units Documented by: Resident Activity Tracking Resident Involvement: Resident Care Provided Care Provided: Adult Hospital Medicine
--- NOTE | 2019-12-30 19:17 | Billing Data ---
Date of Service December 30, 2019 Coding Level of Care Code 09725 Initial Inpt Care Lvl 3
[2019-12-30 19:21] LABS: Partial Thromboplastin Ratio 1.5
[2019-12-30] MEDS ORDERED: HEPARIN IV BOLUS 3,000 UNITS in SYRINGE 0 ML IV ONE (22:45)
--- NOTE | 2019-12-30 22:54 | Electrocardiogram Report ---
Test Reason : Blood Pressure : / mmHG Vent. Rate : 081 BPM Atrial Rate : 058 BPM P-R Int : 000 ms QRS Dur : 190 ms QT Int : 432 ms P-R-T Axes : 000 -79 092 degrees QTc Int : 501 ms Ventricular-paced rhythm Abnormal ECG No previous ECGs available Confirmed by Cornelius Israel ([id number]) on 12/30/2019 10:54:09 PM Referred By: REFERRED SELF Confirmed By:Cornelius Israel
[2019-12-31] MEDS: LACTATED RINGER'S 1,000 ML IV SCH ×2 (00:50→12:16)
[2019-12-31] MEDS: PIPERACILLIN/TAZOBACTAM 3.375 GM in DEXTROSE 5% 100 ML IV SCH ×3 (00:50→18:40)
[2019-12-31 06:14] LABS: Basophils # (auto) 0.01 K/uL (0-0.2); Basophils % (auto) 0.1 %; Hemoglobin 12.6 g/dL (14.0-18.0); Immature Granulocytes # (auto) 0.04 K/uL (0.00-0.02); Immature Granulocytes % (auto) 0.4 %; Lymphocytes # (auto) 2.65 K/uL (1.2-3.4); Mean Corpuscular Hemoglobin 29.3 pg (25-34); Mean Corpuscular Hgb Conc 34.1 g/dL (32-36); Mean Platelet Volume 10.8 fL (7.4-10.4); Monocytes # (auto) 1.42 K/uL (0.11-0.59); Monocytes % (auto) 13.9 %; Neutrophils # (auto) 5.87 K/uL (1.4-6.5); Neutrophils % (auto) 57.6 %; Platelet Count 442 K/uL (130-400); RDW Coefficient of Variation 15.7 % (11.5-14.5); RDW Standard Deviation 49.2 fL (36.4-46.3); White Blood Count 10.19 K/uL (4.8-10.8)
[2019-12-31 06:30] LABS: Albumin Level 1.9 gm/dl (3.4-5.0); BUN Creatinine Ratio 13.2 (10-20); Calcium 8.2 mg/dl (8.5-10.1); Creatinine Clr Calc Pharmacy 80.3 ml/min; Est GFR (Non-African American) 86.3; Potassium 3.9 mmol/L (3.5-5.1)
[2019-12-31 06:32] LABS: Albumin Globulin Ratio 0.5 (0.9-2); Bilirubin,Total 2.6 mg/dl (0.2-1); Globulin 3.9 gm/dl (2.5-4.0); Total Protein 5.8 gm/dl (6.4-8.2)
[2019-12-31 06:33] LABS: Partial Thromboplastin Ratio 2.3
[2019-12-31 06:34] LABS: Partial Thromboplastin Time 63.1 Seconds (21.0-31.0)
[2019-12-31] MEDS: HEPARIN SODIUM/DEXTROSE 25,000 UNITS/500 ML BAG IV SCH (06:37)
[2019-12-31] MEDS: CHOLECALCIFEROL 1,000 UNITS 25 MCG TAB PO SCH ×2 (07:41→20:02)
[2019-12-31] MEDS: PANTOprazole 40 MG TAB PO SCH (07:42)
--- NOTE | 2019-12-31 10:13 | Hospitalist Progress Note ---
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 Fever due to unknown source vs. oncologic fever - last fever 12/29 3:30 AM No leukocytosis, temperature 37.9 on admission -CXR: Bilateral nodular airspace opacities within the lower lung zones bilaterally CTabdomen shows multiple bilateral pulmonary nodules on the lower lung david, right pleural effusion. Review of images shows diffuse hazy opacities. - less likely for pericholecystic fluid to be source - MRSA nare negative -Blood cultures negative at 24 hours, will be 48 hours at 8pm 12/30 -Procalcitonin stable at 0.62, likely secondary to cancer rather than infection Stage 4 Metastatic Colon Adenocarcinoma - Known to oncology - scheduled for port placement 12/[address] Christine - Due to start chemo this week (Tuesday) following port placement which was scheduled for Tuesday initially Extensive hepatic, pulmonary metastasis - Patient likely to require negative blood cultures for surgery to consider inpatient port placement Coags elevated History of A. fib on anticoagulation Patient on Eliquis 5 mg p.o. twice daily for A. 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 Started heparin GTT today in the interim, this can be quickly reversed if port placement is done inpatient as noted above Adequate rate control without beta-nicolas/CCB Admit on telemetry Transaminitis AST/ALT/alk phos increased CT abdomen shows extensive hepatic metastasis in addition to monica-cholecystic fluid Suspect due to malignancy, GI pathogens covered by empiric Zosyn as above CMP daily Prostatomegaly Follow ins and outs, bladder scan if not voiding well Renal cyst Persistent large left renal cyst, 14 cm in diameter Continue to follow, no acute intervention dictated at this time FEN/GI: LR 80 cc/h DVT prophylaxis: Heparin gtt CODE STATUS: DNR/DNI. Discussed with patient Dispo: Medical/surgical with telemetry Admission and Anticipated Discharge Date Admission Date: December 29, 2019 Supervising Physician Co-Signing Physician Notes I personally examined the patient and verified all urbina points of history and exam, discussed case, and agree with decision making with Dr Crabtree. feeling better eating. wants to get port in while here. otherwise feeling well. Dr Crabtree coordinated with surgery vitals noted nad heent nc at mmm breathing unlabored no accessory muscles good effort skin no rashes no pallor or icterus neuro no focal deficits Bilateral lower lobe infiltrates suggesting pneumonia/febrile illness- -questionable pneumonia vs from cancer - but improving on zosyn - continue for now Atrial fibrillation- -rate controlled, anticoagulation held for port placement Stage IV metastatic colon adenocarcinoma -for port, then chemo in near future otherwise as above Subjective somewhat improved from yesterday. No constitutional complaints. generally feels tired and wants to go home. Review of Systems Constitutional: no fever, no chills, no body aches and no fatigue Respiratory: no cough and no dyspnea Cardiovascular: no chest pain, no dyspnea and no edema Gastrointestinal: no abdominal pain, no nausea, no vomiting, no constipation and no diarrhea/loose stools Physical Exam Constitutional: cooperative; no acute distress and not ill appearing Neck: normal visual inspection Respiratory: normal respiratory effort and able to speak in complete sentences; no respiratory distress, no labored breathing, no retractions, no cough and no audible wheezes Auscultation: lungs clear to auscultation bilaterally; no crackles, no rales, no rhonchi and no wheezes Cardiovascular: Rate/Rhythm: regular rate and regular rhythm Heart Sounds: normal S1 and normal S2; no gallop, no murmur and no cardiac rub Vessels: posterior tibial pulses present Extremities: no pedal edema and no edema Gastrointestinal (Abdomen): Inspection/Auscultation: abdomen normal to inspection, + abdomen distended and normal bowel sounds Percussion/Palpation: + hernia and + abdomen firm; abdomen nontender, no guarding, abdomen not rigid and no abdominal mass Results & Data Results & Data ([facility]) Vital Signs (Past 12 Hours) Vital Signs Temp Pulse Resp BP Pulse Ox 12/31/19 07:08 37.5 C 70 20 135/81 94 12/31/19 04:50 37.4 C 71 20 119/72 93 12/30/19 22:54 37 C 71 18 121/73 94 Laboratory Results WBC 10.19 K/uL (4.8-10.8) 12/31/19 05:59 RBC 4.30 M/uL (4.7-6.1) L 12/31/19 05:59 Hgb 12.6 g/dL (14.0-18.0) L 12/31/19 05:59 Hct 37.0 % (42-52) L 12/31/19 05:59 MCV 86.0 fL (80-100) 12/31/19 05:59 MCH 29.3 pg (25-34) 12/31/19 05:59 MCHC 34.1 g/dL (32-36) 12/31/19 05:59 RDW Std Deviation 49.2 fL (36.4-46.3) H 12/31/19 05:59 RDW Coeff of Marcel 15.7 % (11.5-14.5) H 12/31/19 05:59 Plt Count 442 K/uL (130-400) H 12/31/19 05:59 MPV 10.8 fL (7.4-10.4) H 12/31/19 05:59 Immature Gran % (Auto) 0.4 % 12/31/19 05:59 Neut % (Auto) 57.6 % 12/31/19 05:59 Lymph % (Auto) 26.0 % 12/31/19 05:59 [place] % (Auto) 13.9 % 12/31/19 05:59 Eos % (Auto) 2.0 % 12/31/19 05:59 Baso % (Auto) 0.1 % 12/31/19 05:59 Neut # (Auto) 5.87 K/uL (1.4-6.5) 12/31/19 05:59 Lymph # (Auto) 2.65 K/uL (1.2-3.4) 12/31/19 05:59 [place] # (Auto) 1.42 K/uL (0.11-0.59) H 12/31/19 05:59 Eos # (Auto) 0.20 K/uL (0-0.5) 12/31/19 05:59 Baso # (Auto) 0.01 K/uL (0-0.2) 12/31/19 05:59 Immature Gran # (Auto) 0.04 K/uL (0.00-0.02) H 12/31/19 05:59 PT 11.8 Seconds (9.0-12.0) 12/29/19 17:25 INR 1.1 (0.9-1.1) 12/29/19 17:25 APTT 63.1 Seconds (21.0-31.0) H* 12/31/19 05:59 PTT Ratio 2.3 12/31/19 05:59 Sodium 139 mmol/L (136-145) 12/31/19 05:59 Potassium 3.9 mmol/L (3.5-5.1) 12/31/19 05:59 Chloride 108 mmol/L (98-107) H 12/31/19 05:59 Carbon Dioxide 24 mmol/L (21-32) 12/31/19 05:59 Anion Gap 7.0 (3-11) 12/31/19 05:59 BUN 10 mg/dl (7-18) 12/31/19 05:59 Creatinine 0.77 mg/dl (0.6-1.4) 12/31/19 05:59 Est Cr Clr Drug Dosing 80.3 ml/min 12/31/19 05:59 Est GFR ( Amer) 100.0 12/31/19 05:59 Est GFR (Non-Af Amer) 86.3 12/31/19 05:59 BUN/Creatinine Ratio 13.2 (10-20) 12/31/19 05:59 Glucose 88 mg/dl (70-99) 12/31/19 05:59 Calcium 8.2 mg/dl (8.5-10.1) L 12/31/19 05:59 Total Bilirubin 2.6 mg/dl (0.2-1) H 12/31/19 05:59 AST 244 U/L (15-37) H 12/31/19 05:59 ALT 131 U/L (12-78) H 12/31/19 05:59 Alkaline Phosphatase 809 U/L (45-117) H 12/31/19 05:59 Troponin I < 0.015 ng/ml (0-0.045) 12/29/19 17:25 Total Protein 5.8 gm/dl (6.4-8.2) L 12/31/19 05:59 Albumin 1.9 gm/dl (3.4-5.0) L 12/31/19 05:59 Globulin 3.9 gm/dl (2.5-4.0) 12/31/19 05:59 Albumin/Globulin Ratio 0.5 (0.9-2) L 12/31/19 05:59 Lipase 150 U/L (73-393) 12/29/19 17:25 Procalcitonin 0.62 ng/ml (0-0.5) H 12/31/19 05:59 Urine Color [place] 12/29/19 19:20 Urine Appearance Clear (Clear) 12/29/19 19:20 Urine pH 5.0 (4.5-7.5) 12/29/19 19:20 Ur Specific [place] 1.015 (1.000-1.030) 12/29/19 19:20 Urine Protein Negative (Negative) 12/29/19 19:20 Urine Glucose (UA) Negative (Negative) 12/29/19 19:20 Urine Ketones Negative (Negative) 12/29/19 19:20 Urine Blood Negative (Negative) 12/29/19 19:20 Urine Nitrite Negative (Negative) 12/29/19 19:20 Urine Bilirubin 2+ (Negative) H 12/29/19 19:20 Urine Urobilinogen Positive (Negative) H 12/29/19 19:20 Ur Leukocyte Esterase Negative (Negative) 12/29/19 19:20 Nasal Screen MRSA (PCR) Negative (Negative) 12/30/19 06:20 COVID-19 Eval Order Covid19 Done at [facility] 12/31/19 09:50 COVID-19 PCR NEGATIVE (Negative) 12/31/19 09:50 Resident Activity Tracking Resident Involvement: Resident Care Provided Care Provided: Adult Hospital Medicine
[2019-12-31] MEDS ORDERED: Nursing to Pharmacy Communication SCH (15:45)
--- NOTE | 2019-12-31 15:52 | Surgery Consultation ---
Date of Consultation December 31, 2019 Assessment & Plan (1) Metastatic cancer: pt is a 79 year-old male who was admitted to hospital with fever, fatigue, metastatic colon cancer IMP: metastatic colon cancer Plan, pt will have port insertion tomorrow, D/W benefits, risks and alternatives of the surgery, the risks- infection, bleeding, blood clot, dysfunction catheter, injury other organs, pt understood, he agrees with the surgery, i answered all questions, hold heparin after MN, NPO after MN (2) Colon cancer: History of Present Illness Attending Physician: Blair Colunga DO History of Present Illness Chief Complaint: Fatigue Primary Care Provider: IMELDA Thompson Brandon is a 79-year-old male with recently diagnosed 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 Patient reports that he was recently seen by general surgery and oncology and was diagnosed with stage IV adenocarcinoma: Primary as noted above. He was scheduled to hold his Eliquis for anticipated port placement this coming Tuesday and initiation of chemotherapy this coming Tuesday. He reports he has had slowly progressive fatigue and diffuse abdominal discomfort for 2 to 3 weeks, but his energy has decreased and his fatigue has acutely increased in the last 2 to 3 days. He has not had chills or night sweats, is not sure if he has felt feverish. Appetite is decreased. Periumbilical abdominal discomfort progressively increasing. He also endorses left elbow to shoulder pain, left neck pain worse with palpation of the left paraspinal root. Shoulder pain does not change with exercise, and is not associated with increased shortness of breath or diaphoresis. He denies productive cough, endorses intermittent dry cough. I ( richard Christine MD ) got a call for consult port insertion, I reviewed pt's H/P, labs, with pt, pt doing better, no fever, Medical history: Reviewed Medications: Reviewed Surgical history: Reviewed Allergies: Reviewed, no known drug allergies Family history: Noncontributory Social: Alcohol: 2 glasses of wine daily with dinner, last drink 24 hours ago, no prior history of tremors/withdrawal/seizures. Denies tobacco and recreational drug use. Reports he lives at home alone and is normally able to ambulate independently. CODE STATUS: DNR/DNI, discussed with patient Allergies Allergy/AdvReac Type Severity Reaction Status Date / Time No Known Drug Allergies Allergy Verified 12/29/19 18:00 Home Medications Home Medications Medication Instructions Recorded Confirmed Type Eliquis 5 mg PO BID 04/26/19 12/29/19 History cholecalciferol (vitamin D3) 25 mcg PO BID 04/26/19 12/29/19 History [Vitamin D3] omeprazole 40 mg capsule,delayed 40 mg PO DAILY 12/26/19 12/29/19 H istory release Past Med/Surg History Medical History (Updated 12/29/19 @ 20:33 by Blair Costa DO) Pacemaker 2019 Social History (Updated 12/26/19 @ 14:05 by Amena Andrews RN) Smoking Status: Never smoker Hx Alcohol Use: Yes Alcohol type: wine Alcohol type Comment: 2 vu a day Alcohol Intake Frequency: 4 or More x per/Week Hx Substance Use: No Preferred Language: Mauritian Communication Ability: Effective Tube Carrier Required: No Beliefs That Will Affect Care: None marital status: Current Living Situation: Alone current occupational status: retired How many Children do You have: 0 Feels Safe at Home: Yes Safety Concerns: Feels Safe At This Time Review of Systems Review of Systems: Constitutional: Versus weight loss, fatigue. Denies chills. Eyes: Denies double vision, vision change, eye pain ENT: Denies ear pain, sore throat, sinus pain Cardiovascular: Denies Chest pain, chest pressure, palpitations Respiratory: See HPI Gastrointestinal: See HPI Genitourinary: Denies pain with urination, urinary urgency, urinary frequency Musculoskeletal: See HPI Integumentary:Denies rash, lesions, bruising Neurological: Denies headache, numbness, tingling, focal weakness Allergies Allergy/AdvReac Type Severity Reaction Status Date / Time No Known Drug Allergies Allergy Verified 12/29/19 18:00 Home Medications Home Medications Medication Instructions Recorded Confirmed Type Eliquis 5 mg PO BID 04/26/19 12/29/19 History cholecalciferol (vitamin D3) 25 mcg PO BID 04/26/19 12/29/19 History [Vitamin D3] omeprazole 40 mg capsule,delayed 40 mg PO DAILY 12/26/19 12/29/19 History release Patient History Medical History (Updated 12/29/19 @ 20:33 by Blair Costa DO) Pacemaker 2019 Social History (Updated 12/26/19 @ 14:05 by Amena Andrews RN) Smoking Status: Never smoker Hx Alcohol Use: Yes Alcohol type: wine Alcohol type Comment: 2 vu a day Alcohol Intake Frequency: 4 or More x per/Week Hx Substance Use: No Preferred Language: Mauritian Communication Ability: Effective Tube Carrier Required: No Beliefs That Will Affect Care: None marital status: Current Living Situation: Alone current occupational status: retired How many Children do You have: 0 Feels Safe at Home: Yes Safety Concerns: Feels Safe At This Time Review of Systems Review of Systems: All systems reviewed & are unremarkable except as noted in HPI & below Constitutional: as per Subjective / HPI Eyes: as per Subjective / HPI Ear, Nose, Mouth, Throat: as per Subjective / HPI Respiratory: as per Subjective / HPI Cardiovascular: Additional Comments: a-fib, hyperlipidemia, HTN Gastrointestinal: as per Subjective / HPI colon cancer with metastatic to lung and liver Genitourinary: + as per Subjective / HPI Musculoskeletal: as per Subjective / HPI Integumentary: as per Subjective / HPI Neurologic: as per Subjective / HPI Psychiatric: as per Subjective / HPI Endocrine: as per Subjective / HPI Hematologic / Lymphatic: anemia Physical Exam Constitutional: WD/WN, vitals as above well developed and well nourished Eyes: PERRL, conjunctivae normal, anicteric sclerae ENMT: external ear and nose normal, oropharynx normal Neck: trachea midline, no thyromegaly Respiratory: normal respiratory effort, lungs clear to auscultation Cardiovascular: RRR, no murmur, no edema a-fib Gastrointestinal (Abdomen): normal bowel sounds, soft, nontender, no hepatosplenomegaly Musculoskeletal: no cyanosis or clubbing, extremities motor strength 5/5 Skin: no rashes, warm and dry Neurologic: patellar DTR's 2+ bilat, sensation intact Psychiatric: Orientation: alert and oriented x 3 Results & Data ([facility]) Vital Signs (Past 12 Hours) Vital Signs Temp Pulse Pulse Resp BP Pulse Ox 12/31/19 15:20 37.1 C 70 18 116/73 94 12/31/19 12:08 36.9 C 70 18 109/72 92 12/31/19 08:00 72 12/31/19 07:08 37.5 C 70 20 135/81 94 12/31/19 04:50 37.4 C 71 20 119/72 93 Laboratory Results Abnormal lab results 12/30/19 12/31/19 12/31/19 Range/Units 18:52 05:59 05:59 RBC 4.30 L (4.7-6.1) M/uL Hgb 12.6 L (14.0-18.0) g/dL Hct 37.0 L (42-52) % RDW Std Deviation 49.2 H (36.4-46.3) fL RDW Coeff of Marcel 15.7 H (11.5-14.5) % Plt Count 442 H (130-400) K/uL MPV 10.8 H (7.4-10.4) fL [place] # (Auto) 1.42 H (0.11-0.59) K/uL Immature Gran # (Auto) 0.04 H (0.00-0.02) K/uL APTT 43.0 H (21.0-31.0) Seconds Chloride 108 H (98-107) mmol/L Calcium 8.2 L (8.5-10.1) mg/dl Total Bilirubin 2.6 H (0.2-1) mg/dl AST 244 H (15-37) U/L ALT 131 H (12-78) U/L Alkaline Phosphatase 809 H (45-117) U/L Total Protein 5.8 L (6.4-8.2) gm/dl Albumin 1.9 L (3.4-5.0) gm/dl Albumin/Globulin Ratio 0.5 L (0.9-2) Procalcitonin (0-0.5) ng/ml 12/31/19 12/31/19 Range/Units 05:59 05:59 RBC (4.7-6.1) M/uL Hgb (14.0-18.0) g/dL Hct (42-52) % RDW Std Deviation (36.4-46.3) fL RDW Coeff of Marcel (11.5-14.5) % Plt Count (130-400) K/uL MPV (7.4-10.4) fL [place] # (Auto) (0.11-0.59) K/uL Immature Gran # (Auto) (0.00-0.02) K/uL APTT 63.1 H* (21.0-31.0) Seconds Chloride (98-107) mmol/L Calcium (8.5-10.1) mg/dl Total Bilirubin (0.2-1) mg/dl AST (15-37) U/L ALT (12-78) U/L Alkaline Phosphatase (45-117) U/L Total Protein (6.4-8.2) gm/dl Albumin (3.4-5.0) gm/dl Albumin/Globulin Ratio (0.9-2) Procalcitonin 0.62 H (0-0.5) ng/ml (1) Metastatic cancer Area of secondary neoplastic involvement: unspecified site Qualified Code(s): C79.9 - Secondary malignant neoplasm of unspecified site (2) Colon cancer Colon location: unspecified part of colon Qualified Code(s): C18.9 - Malignant neoplasm of colon, unspecified
--- NOTE | 2019-12-31 18:12 | Billing Data ---
Date of Service December 31, 2019 Coding Level of Care Code 33551 Subseq Hosp Care Lvl 3
[2020-01-01] MEDS: LACTATED RINGER'S 1,000 ML IV SCH ×2 (00:34→13:04)
[2020-01-01] MEDS: PANTOprazole 40 MG TAB PO SCH (07:48)
[2020-01-01] MEDS: CHOLECALCIFEROL 1,000 UNITS 25 MCG TAB PO SCH (07:48)
--- NOTE | 2020-01-01 10:40 | Discharge Summary ---
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 Patient reports that he was recently seen by general surgery and oncology and was diagnosed with stage IV adenocarcinoma: Primary as noted above. He was scheduled to hold his Eliquis for anticipated port placement this coming Tuesday and initiation of chemotherapy this coming Tuesday. He reports he has had slowly progressive fatigue and diffuse abdominal discomfort for 2 to 3 weeks, but his energy has decreased and his fatigue has acutely increased in the last 2 to 3 days. He has not had chills or night sweats, is not sure if he has felt feverish. Appetite is decreased. Periumbilical abdominal discomfort progressively increasing. He also endorses left elbow to shoulder pain, left neck pain worse with palpation of the left paraspinal root. Shoulder pain does not change with exercise, and is not associated with increased shortness of breath or diaphoresis. He denies productive cough, endorses intermittent dry cough. Medical history: Reviewed Medications: Reviewed Surgical history: Reviewed Allergies: Reviewed, no known drug allergies Family history: Noncontributory Social: Alcohol: 2 glasses of wine daily with dinner, last drink 24 hours ago, no prior history of tremors/withdrawal/seizures. Denies tobacco and recreational drug use. Reports he lives at home alone and is normally able to ambulate independently. CODE STATUS: DNR/DNI, discussed with patient Admission Exam Per Admitting Provider General: A&Ox3. NAD. Cooperative. Appears thin, frail HEENT: Atraumatic, normocephalic. Equals equal and reactive to light and accommodation. Pulm: CTAB A&P. -wheezes, -rales, -rhonchi. Symmetrical chest rise. No increase work of breathing. No respiratory distress. Cardiac: RRR, -mrg. Radial pulses intact and symmetrical. Abdominal: Mild soft distention. Multiple masses/areas of firmness appreciated, most prominent in right upper quadrant and supraumbilically. Mild tenderness to palpation periumbilically, minimal right upper quadrant tenderness. No rebound tenderness. No guarding. Bowel sounds intact. Extremities: Thin. Moving all extremities equally. Sensation to soft touch intact in fingertips and toes bilaterally Principal Diagnosis fever Discharge Exam Constitutional: cooperative; no acute distress and not ill appearing Neck: normal visual inspection Respiratory: normal respiratory effort and able to speak in complete sentences; no respiratory distress, no labored breathing, no retractions, no cough and no audible wheezes Auscultation: lungs clear to auscultation bilaterally; no crackles, no rales, no rhonchi and no wheezes Cardiovascular: Rate/Rhythm: regular rate and regular rhythm Heart Sounds: normal S1 and normal S2; no gallop, no murmur and no cardiac rub Vessels: posterior tibial pulses present Extremities: no pedal edema and no edema Gastrointestinal (Abdomen): Inspection/Auscultation: abdomen normal to inspection, + abdomen distended and normal bowel sounds Percussion/Palpation: + hernia and + abdomen firm; abdomen nontender, no guarding, abdomen not rigid and no abdominal mass Discharge Data Allergies Allergy/AdvReac Type Severity Reaction Status Date / Time No Known Drug Allergies Allergy Verified 12/29/19 18:00 Consultations 12/29/19 19:00 ED Decision to Admit Stat 12/31/19 13:12 Consult General Surgery Routine Procedures Performed Operation Date: 01/01/20 07:00 <No data on this case meets the specified criteria> Operation Date: 01/01/20 13:15 <No data on this case meets the specified criteria> Ordered Studies 12/29/19 17:10 CT abd pelvis IV con only Stat 01/01/20 13:15 FL fluoro (infusaport) to 1 hr Routine Hospital Course (1) Cancer: Brandon is a 79-year-old male with recently diagnosed 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 Fever due to unknown source vs. oncologic fever - last fever 12/29, no leukocytosis or other fevers during admission. - unclear etiology. CXR showing pulmonary nodules, BL hazy opacities. - CT abd/pelv showing some pericholecystic fluid, no other intra-abdominal infection - blood cultures negative at 48 hours - procalcitonin continuously stable at 0.61 despite antibiotic treatment with zosyn - Given immunocompromised status and patient's upcoming chemotherapy regimen, opted for conservative management to complete full 10 day course of antibiotics, converted to PO Augmentin BID x 8 days. Stage 4 Metastatic Colon Adenocarcinoma - originally scheduled for port placement with Dr. 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 Christine on 12/31, will keep 01/01 chemotherapy appointment History of A. kristine on anticoagulation eliquis held in setting of neeidng port placement. Placed on heparin during stay, advised to resume eliquis 01/01 (day after port placed) Transaminitis likely secondary to metastatic cancer All other chronic medical conditions managed by home regimen Total Time Total Time Spent Total Time Spent (In Minutes): <30 Discharge Plan Discharge Items Patient Disposition: Home - Self-Care Reason For Visit: FEVER,PNA Discharge Diagnosis: Fever Activity: Per Instructions section Non-emergency contact: Primary Care Provider and Surgeon Call non-emergency contact if: your wound has increased drainage Follow-up/Referrals: Mena Whittaker CRNP [Primary Care Provider] - Diet: Regular Addtl Attending Provider Instructions: You were evaluated in the hospital for fever, cough and general malaise that you were having at home. Your chest xrays showed there may have been some inflammation and beginnings of infection from an episode of aspiration that was treated with 2 days of IV antibiotics. Given that you are at a higher risk for infection and having a weaker immune system, we are going to finish out a total of 10 day course of antibiotics. Prior to your hospital stay you were scheduled to have your port placement for chemotherapy on 12/31 and we arranged for that to occur while you were admitted. Your eliquis was stopped while you were in the hospital and you were placed on heparin for blood thinning control prior to having the port placed. You will be able to re-start your eliquis on 01/01, or per surgery's recommendation if they differ. New Medications: - Augmentin twice a day, for 8 days Follow up with your surgeon per their recommendations for management of the port site, and keep your appointment with oncology for the chemotherapy. Follow up with your primary care provider in the next 10 days for a hospital follow up appointment. Pending Studies at Discharge: No Stand-Alone Forms: My Checkout10, Smoking Cessation Medications and DC Order Prescriptions: New amoxicillin-pot clavulanate [Augmentin] 875-125 mg tablet 1 tab PO BID 8 Days Qty: 16 RF: 0 Continued omeprazole 40 mg capsule,delayed release(DR/EC) 40 mg PO DAILY RF: 0 Eliquis 5 mg Tablet 5 mg PO BID RF: 0 cholecalciferol (vitamin D3) [Vitamin D3] 25 mcg (1,000 unit) Tablet 25 mcg PO BID RF: 0 Discharge Orders: Discharge Order (Routine); Ordered 01/01/20 Ordered By: Blair Colunga Admission Data Admit Date/Time: 12/29/19 20:20 Attending Provider: Blair Colunga Admit Provider: Praful Stewart Primary Care Provider: Mena Whittaker Other Providers: Nancy Crabtree ; Sancho Gonsalves ; Ahmet Phelan ; Reggie Christine Other Interventions: Discharge Summary Assessment (RN) Last Done: 01/01/20 19:10 Supervising Physician Co-Signing Physician Notes I personally examined the patient and verified all urbina points of history and exam, discussed case, and agree with decision making with Dr Crabtree. feeling good post op wants to go home vitals noted nad heent nc at mmm breathing unlabored no accessory muscles good effort skin no rashes no pallor or icterus neuro no focal deficits Bilateral lower lobe infiltrates suggesting pneumonia/febrile illness- -questionable pneumonia vs from cancer - but risk of not treating pneumonia quite high given current situation - finish abx w augmentin Atrial fibrillation- -rate controlled, anticoagulation resumed at discharge Stage IV metastatic colon adenocarcinoma -post port, then chemo in near future otherwise as above, stable for home Resident Activity Tracking Resident Involvement: Resident Care Provided Care Provided: Adult Hospital Medicine
--- NOTE | 2020-01-01 14:31 | History & Physical Bridge Note ---
Date of Service January 01, 2020 History & Physical Bridge Note I have examined the patient, reviewed the History & Physical and in the interval since the performance of the History & Physical I have noted the following changes of clinical significance: no changes noted Supervising Physician Co-Signing Physician Notes I personally examined the patient and verified all urbina points of history and exam, discussed case, and agree with decision making with Dr Crabtree. feeling better eating. wants to get port in while here. otherwise feeling well. Dr Crabtree coordinated with surgery vitals noted nad heent nc at mmm breathing unlabored no accessory muscles good effort skin no rashes no pallor or icterus neuro no focal deficits Bilateral lower lobe infiltrates suggesting pneumonia/febrile illness- -questionable pneumonia vs from cancer - but improving on zosyn - continue for now Atrial fibrillation- -rate controlled, anticoagulation held for port placement Stage IV metastatic colon adenocarcinoma -for port, then chemo in near future otherwise as above
[2020-01-01] MEDS ORDERED: fentaNYL citrate 100 MCG/2 ML VIAL ONE (14:36)
[2020-01-01] MEDS ORDERED: LIDOCAINE HCL 2% 2 ML VIAL/AMP(20MG/ML) INFIL ONE (14:39)
[2020-01-01] MEDS ORDERED: PROPOFOL IV EMULSION 10 MG/ML 20 ML VIAL IV ONE (14:39)
[2020-01-01] MEDS ORDERED: BACITRACIN OINT 15 GM TUBE ONE (14:40)
[2020-01-01] MEDS ORDERED: HEPARIN 100 UNIT/ML 5ML FLUSH ONE (14:40)
[2020-01-01] MEDS ORDERED: BUPIVACAINE 0.5 % 5 MG/1 ML MPF 30ML VIAL ONE (14:40)
[2020-01-01] MEDS ORDERED: LIDOCAINE HCL 1% 20 ML VIAL ONE (14:40)
[2020-01-01] MEDS ORDERED: SODIUM CHLORIDE 0.9% INJ 10 ML VIAL ONE (14:40)
[2020-01-01] MEDS ORDERED: ONDANSETRON INJ 2 MG/ML 2 ML VIAL ONE (14:41)
--- NOTE | 2020-01-01 14:46 | Anesthesiology Consultation ---
Date of Service January 01, 2020 Assessment & Plan Chart Review Chart Review: Acceptable Risk for Surgery and Patient NOT seen in Pre Admission Testing Consults Requested none ASA ASA4 Proposed Anesthesia Anesthesia Type: MAC Risk / Benefits Reviewed With: PT / POA / Parent / Guardian, Accepts Plan and Informed Consent Obtained Additional Comments: covid test negative History Surgery Operation Date: 01/01/20 07:00 Proposed Procedures p Insertion of Mediport - Phil Vernon MD Operation Date: 01/01/20 13:15 Proposed Procedures p Infusaport Insertion - Reggie Christine MD Height/Weight Height: 5 ft 10 in Weight: 82.8 kg Allergies Allergy/AdvReac Type Severity Reaction Status Date / Time No Known Drug Allergies Allergy Verified 12/29/19 18:00 Medications Home Medications Medication Instructions Recorded Confirmed Last Taken Eliquis 5 mg PO BID 04/26/19 12/29/19 12/29/19 cholecalciferol (vitamin D3) 25 mcg PO BID 04/26/19 12/29/19 12/29/19 [Vitamin D3] omeprazole 40 mg capsule,delayed 40 mg PO DAILY 12/26/19 12/29/19 12/29/19 release amoxicillin-pot clavulanate 1 tab PO BID 8 Days #16 tab 01/01/20 Unknown [Augmentin] Active Medications Generic Name Dose Route Start Last Admin Trade Name Freq PRN Reason Stop Dose Admin Lactated Ringer's 1,000 mls @ 80 mls/hr 12/29/19 23:29 01/01/20 13:04 Lr IV 01/28/20 23:28 80 mls/hr .[id number] JOSÉ Administration Heparin Sodium/Dextrose 25,000 units in 500 mls @ 30 mls/hr 12/30/19 12:30 12/31/19 23:07 Heparin Sodium/Dextrose IV 01/29/20 12:29 1,500 units/hr .[id number] JOSÉ 30 mls/hr Titration Protocol 1,500 UNITS/HR Pantoprazole Sodium 40 mg 12/30/19 09:00 01/01/20 07:48 Pantoprazole 40 Mg Tab PO 01/29/20 08:59 40 mg DAILY JOSÉ Administration Vitamin D 1,000 units 12/29/19 23:29 01/01/20 07:48 Cholecalciferol 1,000 Units 25 Mcg Tab PO 01/28/20 23:28 1,000 units BID JOSÉ Administration NPO Date Last Intake of Fluids: 12/31/19 Time Last Intake of Fluids: 20:00 Date Last Intake of Solids: 12/31/19 Time Last Intake of Solids: 20:00 Past Medical History Medical History Pacemaker 2019 Exercise / Class Metabolic Activity III < 4 Walking/Shop/Light housework Past Anesthesia History No Hx of Anesthesia Complications and No Family Hx of Anesthesia Complications History of PONV No Hx of PONV and No Hx of Motion Sickness Social History Smoking Status: Never smoker Hx Alcohol Use: Yes Alcohol type: wine alcohol intake frequency: 0-2 drinks per day Hx Substance Use: No substance use type: does not use Physical Exam Vital Signs Last Vital Signs Temp 36.9 C 01/01/20 14:30 Pulse 75 01/01/20 14:30 Resp 18 01/01/20 14:30 BP 124/83 01/01/20 14:30 Pulse Ox 96 01/01/20 14:30 Constitutional + obese ENMT Mouth: + dental restorations; no dentition abnormality Thyromental Distance: > or= 3.5 Finger Breadths Mallampati Class: II Neck normal visual inspection, trachea midline and + facial hair; neck extension not limited Respiratory + uses accessory muscles Auscultation: + diminished lung sounds, + crackles, + rhonchi and + wheezes Cardiovascular Rate/Rhythm: regular rate and regular rhythm Heart Sounds: no murmur Vessels: no carotid bruit Musculoskeletal Spine: normal cervical ROM Extremities: extremities normal to inspection Neurologic moves all extremities Motor/Sensory: no sensory deficit Psychiatric Orientation: alert and oriented x 3 Testing Laboratory Results 12/31/19 05:59 12/31/19 05:59 PT 11.8 Seconds (9.0-12.0) 12/29/19 17:25 INR 1.1 (0.9-1.1) 12/29/19 17:25 APTT 63.1 Seconds (21.0-31.0) H* 12/31/19 05:59 Urine Color [place] 12/29/19 19:20 Urine Appearance Clear (Clear) 12/29/19 19:20 Urine pH 5.0 (4.5-7.5) 12/29/19 19:20 Ur Specific [place] 1.015 (1.000-1.030) 12/29/19 19:20 Urine Protein Negative (Negative) 12/29/19 19:20 Urine Glucose (UA) Negative (Negative) 12/29/19 19:20 Urine Ketones Negative (Negative) 12/29/19 19:20 Urine Nitrite Negative (Negative) 12/29/19 19:20 Ur Leukocyte Esterase Negative (Negative) 12/29/19 19:20 12/29/19 20:00 Aerobic Blood Culture - Preliminary Blood No growth in Aerobic bottle after 48 hours. Anaerobic Blood Culture - Preliminary No growth in Anaerobic bottle after 48 hours. 12/29/19 20:16 Aerobic Blood Culture - Preliminary Blood No growth in Aerobic bottle after 48 hours. Anaerobic Blood Culture - Preliminary No growth in Anaerobic bottle after 48 hours. Electrocardiogram Date: 12/29/19 Findings: + pertinent finding (Ventricular paced rhythm at 81) Chest X-Ray Date: 12/29/19 Findings: + infiltrate and + pulmonary vascular congestion bibasilar nodular airspace opacities Echocardiogram Date: 03/12/19 EF: 60% LV Function: normal RWMA: + none Other Findings: + atrial enlargement (severe biatrial enlargement) Valvular Disease: + AI (mild) and + MR (mild) dilated RV w/ normal RV sys. fxn +PFO w/ left to right shunt
[2020-01-01] MEDS ORDERED: ePHEDrine sulfate 50 MG/ML AMP IV PRN (14:55)
[2020-01-01] MEDS ORDERED: ATROPINE SULFATE 0.1 MG/ML 10ML SYR IV PRN (14:55)
[2020-01-01] MEDS ORDERED: CEFAZOLIN 2000MG 2,000 MG/15 ML SYR IV SCH (15:00)
--- NOTE | 2020-01-01 15:56 | Post Operative Brief Note ---
Immediate Post Op Note v1 Date of Surgery January 01, 2020 Pre & Post Diagnosis Operation Date: 01/01/20 07:00 <No data on this case meets the specified criteria> Operation Date: 01/01/20 13:15 Pre-Op Diagnosis: Metastatic cancer. Post-Op Diagnosis: Metastatic cancer. 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
--- NOTE | 2020-01-01 16:20 | Anesthesiology Progress Note ---
Date of Service January 01, 2020 Anesthesia Post Procedure Vital Signs Vital Signs: Temp Pulse Pulse Pulse Resp BP Pulse Ox 01/01/20 16:15 73 17 117/78 93 01/01/20 16:05 75 19 111/78 90 01/01/20 15:59 36.6 C 69 17 102/75 93 01/01/20 14:30 36.9 C 75 18 124/83 96 01/01/20 11:29 36.9 C 63 16 129/86 94 01/01/20 07:36 74 01/01/20 07:14 37.0 C 77 16 113/75 94 01/01/20 03:03 37.1 C 70 17 117/78 93 01/01/20 01:06 67 12/31/19 23:35 37.3 C 72 18 100/62 96 12/31/19 20:00 37.1 C 77 18 119/71 94 Pain Intensity Left Shoulder: Pain Intensity: 4 Transfer of Care Handoff Completed per policy Notes Mental Status: alert / awake / arousable Patient Amnestic to Procedure: Yes Nausea / Vomiting: adequately controlled Pain: adequately controlled Airway Patency, RR, SpO2: stable & adequate BP & HR: stable & adequate Hydration State: stable & adequate Anesthetic Complications: no major complications apparent
--- NOTE | 2020-01-01 16:35 | XRay Report ---
XR chest 1V portable CLINICAL HISTORY: S/P port insertion COMPARISON STUDY: 12/29/2019 FINDINGS: There is a left subclavian dual-chamber central venous pacemaker. There has been interval i nsertion of a right sided A-Port catheter. The tip projects over the superior vena cava. There is no pneumothorax. Multifocal nodular airspace opacities persist.[ IMPRESSION: 1. No evidence of pneumothorax status post placement of a right sided A-Port catheter 2. Persistent multifocal nodular opacities ACT 112: Negative or not required by law. Electronically signed by: Mateo Coates M.D. 01/01/2020 4:34 PM
--- NOTE | 2020-01-01 19:25 | Billing Data ---
Date of Service January 01, 2020 Coding Level of Care Code D/C Day Management <30 mins
[2020-01-01] MEDS ORDERED: APIXABAN 5 MG TABLET PO SCH (21:00)
--- NOTE | 2020-01-01 23:35 | Operative Report (OR) ---
DATE OF OPERATION: 01/01/2020 PREOPERATIVE DIAGNOSIS: Colon cancer. POSTOPERATIVE DIAGNOSIS: Colon cancer. PROCEDURE: Insertion of tunneled Mfrg-U-Sjlmjkts on right internal jugular vein. SURGEON: Reggie Christine MD. ANESTHESIA: Conscious sedation plus local. ESTIMATED BLOOD LOSS: About 5 mL. FINDINGS: Patent right internal jugular vein. COMPLICATIONS: None. INDICATIONS FOR THE PROCEDURE: This is a 79-year-old gentleman who is referred for port insertion for his chemo treatment for colon cancer. I did talk to the patient about the benefit, the risk, alternate procedure. I indicated the risks may include but not limited such as bleeding, infection, blood clot, dysfunction of catheter, injury to other organs, sepsis. The patient understands. He signed informed consent and I answered all questions. DETAILS OF PROCEDURE: We brought the patient to the OR, put the patient in the supine position. The patient received SCD on bilateral legs to prevent DVT. Also, patient received 2 grams Ancef IV for prophylactic antibiotic. The patient received conscious sedation by the anesthesiology. The right side of the neck and right upper chest was prepped and draped in routine sterile fashion. After timeout, I injected the local anesthesia by using 1% lidocaine mixed with 0.5% Marcaine on the right side of the neck and right upper chest. Then, I used the ultrasound guide and used a 16-gauge needle, punctured the right internal trochlear vein, easy blood return passed the wire. Then we used the fluorescence to confirm the wire located at the superior vena cava. I then made about 2.5 cm incision on the right upper chest to create a pouch. Hemostasis was obtained. Then I passed the catheter through the right upper chest to the right side of the neck and the end of the catheter connected to the port. Then, we used sheath and dilator, passed the wire and removed the wire and dilator, leaving the sheath in. Then we passed the catheter through the sheath and then we removed the sheath, catheter get in easily, again we used the fluorescence to confirm the tip of catheter at located junction between the right atrium and superior vena cava. Then we used 2-0 Prolene to fix the port on the chest wall at 3 point and hemostasis obtained. I used 2-0 Vicryl to close subcutaneous layer continuous running and closed the skin by using 4-0 Vicryl continuous running and then we put the dressing on and also we connect with the port with needle needle and easy blood returned and injected the heparin with saline 10 mL to flush the catheter. The patient tolerated the procedure well. All instrument, needle and sponge count were correct x2 at the end of the case. The patient transferred to recovery room in stable condition. After the procedure, I did talk to the patient about the OR finding and procedure we did, he understands. I attest to the content of the Intraoperative Record and any orders documented therein. Any exceptions are noted below. WILLIAM
== END 2020-01-01 19:33 | disposition home or self-care (01) | DRG 374 ==
LOC: ED 16:51 → SUATTDRO 20:20 → 2N 20:20

== ENCOUNTER 2020-01-15 15:57 | Observation (INO) ==
[2020-01-15] MEDS ORDERED: SODIUM CHLORIDE 0.9% 1000ML 1,000 ML IV SCH (16:15)
--- NOTE | 2020-01-15 16:52 | XRay Report ---
XR chest 1V portable HISTORY: 79 years-old Male weakness acute weakness COMPARISON: Chest radiograph 01/01/2020, CT abdomen and pelvis 12/29/2019, chest CT 11/29/2019 TECHNIQUE: Portable AP view of the chest FINDINGS: Cardiac silhouette is upper limits of normal in size. Left subclavian pacer. Right IJ Qxgxqk-[id number]-Hxhy c atheter is unchanged. There is no pneumothorax. There is mildly improved aeration of the lung bases. Bilateral reticular nodular opacities are redemonstrated. No large pleural effusion or overt pulmonar y edema. Bones of the chest appear grossly intact. IMPRESSION: 1. Mildly improved aeration of the lung bases. 2. Bilateral reticular nodular opacities are redemonstrated compatible with pulmonary metastasis. ACT 112: Negative or not required by law. The above report was generated using voice recognition software. It may contain grammatical, syntax o r spelling errors. Electronically signed by: Eduin Larsen M.D. 01/15/2020 4:51 PM
[2020-01-15 16:53] LABS: Basophils # (auto) 0.01 K/uL (0-0.2); Basophils % (auto) 0.1 %; Eosinophils # (auto) 0.08 K/uL (0-0.5); Eosinophils % (auto) 0.8 %; Hematocrit (blood only) 34.7 % (42-52); Hemoglobin 11.6 g/dL (14.0-18.0); Immature Granulocytes # (auto) 0.04 K/uL (0.00-0.02); Immature Granulocytes % (auto) 0.4 %; Lymphocytes # (auto) 3.09 K/uL (1.2-3.4); Lymphocytes % (auto) 30.1 %; Mean Corpuscular Hgb Conc 33.4 g/dL (32-36); Mean Corpuscular Volume 89.7 fL (80-100); Mean Platelet Volume 10.9 fL (7.4-10.4); Monocytes # (auto) 0.69 K/uL (0.11-0.59); Monocytes % (auto) 6.7 %; Neutrophils # (auto) 6.35 K/uL (1.4-6.5); Neutrophils % (auto) 61.9 %; Platelet Count 347 K/uL (130-400); RDW Coefficient of Variation 18.9 % (11.5-14.5); RDW Standard Deviation 59.1 fL (36.4-46.3); Red Blood Count 3.87 M/uL (4.7-6.1); White Blood Count 10.26 K/uL (4.8-10.8)
[2020-01-15 17:13] LABS: Albumin Level 2.3 gm/dl (3.4-5.0); BUN Creatinine Ratio 25.8 (10-20); Calcium 8.7 mg/dl (8.5-10.1); Creatinine Clr Calc Pharmacy 99.8 ml/min; Est GFR (African American) 109.4; Est GFR (Non-African American) 94.4; Magnesium 2.1 mg/dl (1.8-2.4); Potassium 3.7 mmol/L (3.5-5.1)
[2020-01-15 17:44] LABS: Albumin Globulin Ratio 0.5 (0.9-2); Globulin 4.3 gm/dl (2.5-4.0); Thyroid Stimulating Hormone 1.04 uIu/ml (0.300-4.500); Total Protein 6.6 gm/dl (6.4-8.2)
[2020-01-15 17:47] LABS: Partial Thromboplastin Time 27.8 Seconds (21.0-31.0); Prothrombin Time 10.9 Seconds (9.0-12.0)
--- NOTE | 2020-01-15 18:26 | Ultrasound Report ---
ULTRASOUND RIGHT UPPER QUADRANT ABDOMEN CLINICAL HISTORY: Right upper quadrant abdominal pain. Metastatic colon cancer. COMPARISON STUDY: Abdominal CT dated 12/29/2019 TECHNIQUE: Real-time, grayscale, and color flow sonography of the right upper quadrant of the abdomen was performed. Images are reviewed in the transverse and longitudinal planes. FINDINGS: Liver: The liver is enlarged and heterogeneous. The liver is infiltrated by diffuse hepatic metastati c disease. There is no intrahepatic biliary ductal dilatation. The main portal vein is patent. Gallbladder: The gallbladder is decompressed. There is nonspecific gallbladder wall thickening up to 9 mm. No shadowing gallstones are identified. No pericholecystic fluid is seen. A sonographic Mariano' s sign is reportedly absent. The common bile duct measures up to 0.4 cm in diameter. Pancreas: Visualized portions of the pancreatic head and body are normal in appearance. The splenic v ein is patent. Right kidney: Survey images of the right kidney demonstrate normal size and echotexture. There is no hydronephrosis. Ascites: None. Pleural spaces: The right pleural effusion is noted. IMPRESSION: 1. The liver is enlarged and heterogeneous with evidence of diffuse hepatic metastatic disease. 2. Gallbladder wall thickening is nonspecific and likely related to hepatic pathology. 3. No gallstones are identified and there is no sonographic evidence of acute cholecystitis. 4. There is no intra or extrahepatic biliary ductal dilatation. 5. Right pleural effusion. ACT 112: Negative or not required by law. Electronically signed by: Jarred Zhu M.D. 01/15/2020 6:24 PM
--- NOTE | 2020-01-15 18:54 | Emergency Department Note ---
History of Present Illness General Chief complaint: Abnormal Labs/Diagnostic Testing Stated complaint: ABNORMAL LAB RESULTS, REFERRED BY JUJU NORIEGA Time Seen by Provider: 01/15/20 16:03 Source: patient, RN notes reviewed and old records reviewed Mode of arrival: ambulatory Limitations: no limitations History of Present Illness Provider complaint: Abnormal laboratory work Maximum Pain Intensity: 7 This patient is a 79-year-old male who presents to the emergency department with complaints of abnormal laboratory work. He states he has metastatic colon cancer and is due to have chemotherapy treatment #2 tomorrow. He had pre-chemo lab work today and was told his liver enzymes are elevated. Patient denies nausea, vomiting, fever, abdominal pain. He states he has been eating but much less than usual. He has been losing weight. The patient states he had a bowel movement yesterday which he thought was a light triplett, different than usual. He states his urine has been darker than usual but denies any blood in the urine. Patient denies any altered mentation. He does live at home by himself. Home Medications Home Medications Medication Instructions Recorded Confirmed Type Eliquis 5 mg PO BID 04/26/19 01/15/20 History cholecalciferol (vitamin D3) 25 mcg PO BID 04/26/19 01/15/20 History [Vitamin D3] omeprazole 40 mg capsule,delayed 40 mg PO DAILY 12/26/19 01/15/20 History release Allergies Allergy/AdvReac Type Severity Reaction Status Date / Time No Known Allergies Allergy Verified 01/15/20 19:04 Past Med/Surg History Medical History (Updated 01/15/20 @ 19:42 by Isis Gee MD) Anemia Atrial fibrillation with slow ventricular response Colon cancer Elevated bilirubin Hyperlipemia Hypertension Metastatic cancer Pacemaker 2019 Transaminitis Social History (Updated 12/26/19 @ 14:05 by Amena Andrews RN) Smoking Status: Never smoker Hx Alcohol Use: Yes Alcohol type: wine Alcohol type Comment: 2 vu a day Alcohol Intake Frequency: 4 or More x per/Week Hx Substance Use: No Preferred Language: Danish Communication Ability: Effective Cad Designer Required: No Beliefs That Will Affect Care: None marital status: Current Living Situation: Alone current occupational status: retired How many Children do You have: 0 Feels Safe at Home: Yes Review of Systems See HPI for pertinent positives & negatives. and A total of 10 systems reviewed and were otherwise negative Physical Exam Vital Signs Vital Signs - 24 hr 01/15/20 15:59 01/15/20 16:17 01/15/20 17:30 Temperature 36.8 C Temperature Source Oral Pulse Rate 90 Pulse Rate [Finger] 77 Respiratory Rate 18 18 Respiratory Effort / Characteristics Non-Labored Respiratory Depth Normal Blood Pressure 129/79 Blood Pressure [Left Arm] 125/78 Blood Pressure Mean 95 Blood Pressure Mean [Left Arm] 93 Pulse Oximetry 96 95 Oxygen Delivery Method Room Air Room Air Sepsis Recent Fever Within 48 Hours No Sepsis New/Unexplained Change in Mental Status No Sepsis Action Taken by Nursing No Action Required 01/15/20 18:27 01/15/20 19:30 Temperature Temperature Source Pulse Rate Pulse Rate [Finger] 78 72 Respiratory Rate 16 20 Respiratory Effort / Characteristics Respiratory Depth Blood Pressure Blood Pressure [Left Arm] 113/86 123/77 Blood Pressure Mean Blood Pressure Mean [Left Arm] 95 92 Pulse Oximetry 96 95 Oxygen Delivery Method Room Air Room Air Sepsis Recent Fever Within 48 Hours Sepsis New/Unexplained Change in Mental Status Sepsis Action Taken by Nursing Vital signs reviewed. General: Elderly, chronically ill-appearing 79-year-old male, in no significant distress. HEENT: Mild scleral icterus, PERRLA, neck supple. Cardiovascular: Regular rate and rhythm, no extra sounds. Pulmonary: Clear to auscultation bilaterally, normal work of breathing. Abdomen: Soft, nontender, right upper quadrant with several firm and smaller masses palpated, positive bowel sounds. Musculoskeletal: Atraumatic, no peripheral edema. Neurologic: Patient awake alert and oriented x 3 Skin: Warm, dry, no rash Course Administered Medications Sodium Chloride (Nss 1000ml) 1,000 mls @ 125 mls/hr IV .Q8H JOSÉ Stop: 01/16/20 00:14 Last Admin: 01/15/20 16:47 Dose: 125 mls/hr Documented by: [id number] Medical Decision Making Differential Diagnosis Differential: includes acute coronary syndrome, myocardial infarction, CVA, TIA, anemia, infection, pneumonia, UTI, pyelonephritis, poor nutrition, dehydration, electrolyte disturbance,hypoglycemia. Medical Records Attestation: I reviewed the patient's medical records. Home Medications Current Medication List: was personally reviewed by me Laboratory Data Attestation: I reviewed the patient's lab results. Result diagrams: 01/15/20 16:37 01/15/20 16:37 Lab Results 01/15/20 01/15/20 01/15/20 Range/Units 16:37 16:37 16:37 WBC 10.26 (4.8-10.8) K/uL RBC 3.87 L (4.7-6.1) M/uL Hgb 11.6 L (14.0-18.0) g/dL Hct 34.7 L (42-52) % MCV 89.7 (80-100) fL MCH 30.0 (25-34) pg MCHC 33.4 (32-36) g/dL RDW Std Deviation 59.1 H (36.4-46.3) fL RDW Coeff of Marcel 18.9 H (11.5-14.5) % Plt Count 347 (130-400) K/uL MPV 10.9 H (7.4-10.4) fL Immature Gran % (Auto) 0.4 % Neut % (Auto) 61.9 % Lymph % (Auto) 30.1 % Carver % (Auto) 6.7 % Eos % (Auto) 0.8 % Baso % (Auto) 0.1 % Neut # (Auto) 6.35 (1.4-6.5) K/uL Lymph # (Auto) 3.09 (1.2-3.4) K/uL Carver # (Auto) 0.69 H (0.11-0.59) K/uL Eos # (Auto) 0.08 (0-0.5) K/uL Baso # (Auto) 0.01 (0-0.2) K/uL Immature Gran # (Auto) 0.04 H (0.00-0.02) K/uL PT Cancelled INR Cancelled APTT Cancelled PTT Ratio Cancelled Sodium 139 (136-145) mmol/L Potassium 3.7 (3.5-5.1) mmol/L Chloride 107 (98-107) mmol/L Carbon Dioxide 25 (21-32) mmol/L Anion Gap 7.0 (3-11) BUN 16 (7-18) mg/dl Creatinine 0.62 (0.6-1.4) mg/dl Est Cr Clr Drug Dosing 99.8 ml/min Est GFR ( Amer) 109.4 Est GFR (Non-Af Amer) 94.4 BUN/Creatinine Ratio 25.8 H (10-20) Glucose 88 (70-99) mg/dl Calcium 8.7 (8.5-10.1) mg/dl Magnesium 2.1 (1.8-2.4) mg/dl Total Bilirubin 7.0 H (0.2-1) mg/dl AST 175 H (15-37) U/L ALT 167 H (12-78) U/L Alkaline Phosphatase 1030 H (45-117) U/L Ammonia (11-32) umol/L Total Protein 6.6 (6.4-8.2) gm/dl Albumin 2.3 L (3.4-5.0) gm/dl Globulin 4.3 H (2.5-4.0) gm/dl Albumin/Globulin Ratio 0.5 L (0.9-2) TSH 1.040 (0.300-4.500) uIu/ml 01/15/20 01/15/20 Range/Units 16:37 17:20 WBC (4.8-10.8) K/uL RBC (4.7-6.1) M/uL Hgb (14.0-18.0) g/dL Hct (42-52) % MCV (80-100) fL MCH (25-34) pg MCHC (32-36) g/dL RDW Std Deviation (36.4-46.3) fL RDW Coeff of Marcel (11.5-14.5) % Plt Count (130-400) K/uL MPV (7.4-10.4) fL Immature Gran % (Auto) % Neut % (Auto) % Lymph % (Auto) % Carver % (Auto) % Eos % (Auto) % Baso % (Auto) % Neut # (Auto) (1.4-6.5) K/uL Lymph # (Auto) (1.2-3.4) K/uL Carver # (Auto) (0.11-0.59) K/uL Eos # (Auto) (0-0.5) K/uL Baso # (Auto) (0-0.2) K/uL Immature Gran # (Auto) (0.00-0.02) K/uL PT 10.9 INR 1.0 APTT 27.8 PTT Ratio 1.0 Sodium (136-145) mmol/L Potassium (3.5-5.1) mmol/L Chloride (98-107) mmol/L Carbon Dioxide (21-32) mmol/L Anion Gap (3-11) BUN (7-18) mg/dl Creatinine (0.6-1.4) mg/dl Est Cr Clr Drug Dosing ml/min Est GFR ( Amer) Est GFR (Non-Af Amer) BUN/Creatinine Ratio (10-20) Glucose (70-99) mg/dl Calcium (8.5-10.1) mg/dl Magnesium (1.8-2.4) mg/dl Total Bilirubin (0.2-1) mg/dl AST (15-37) U/L ALT (12-78) U/L Alkaline Phosphatase (45-117) U/L Ammonia < 10.0 L (11-32) umol/L Total Protein (6.4-8.2) gm/dl Albumin (3.4-5.0) gm/dl Globulin (2.5-4.0) gm/dl Albumin/Globulin Ratio (0.9-2) TSH (0.300-4.500) uIu/ml Imaging Data Radiologist's Impression: XR chest 1V portable HISTORY: 79 years-old Male weakness acute weakness COMPARISON: Chest radiograph 01/01/2020, CT abdomen and pelvis 12/29/2019, chest CT 11/29/2019 TECHNIQUE: Portable AP view of the chest FINDINGS: Cardiac silhouette is upper limits of normal in size. Left subclavian pacer. Right IJ Bacztv-a-Wywn catheter is unchanged. There is no pneumothorax. There is mildly improved aeration of the lung bases. Bilateral reticular nodular opaciti es are redemonstrated. No large pleural effusion or overt pulmonary edema. Bones of the chest appear grossly intact. IMPRESSION: 1. Mildly improved aeration of the lung bases. 2. Bilateral reticular nodular opacities are redemonstrated compatible with pulmonary metastasis. ACT 112: Negative or not required by law. The above report was generated using voice recognition software. It may contain grammatical, syntax or spelling errors. Electronically signed by: Ediun Larsen M.D. 01/15/2020 4:51 PM Dictated: 01/15/201647 Transcribed: 01/15/201647 ULTRASOUND RIGHT UPPER QUADRANT ABDOMEN CLINICAL HISTORY: Right upper quadrant abdominal pain. Metastatic colon cancer. COMPARISON STUDY: Abdominal CT dated 12/29/2019 TECHNIQUE: Real-time, grayscale, and color flow sonography of the right upper quadrant of the abdomen was performed. Images are reviewed in the transverse and longitudinal planes. FINDINGS: Liver: The liver is enlarged and heterogeneous. The liver is infiltrated by diffuse hepatic metastatic disease. There is no intrahepatic biliary ductal dilatation. The main portal vein is patent. Gallbladder: The gallbladder is decompressed. There is nonspecific gallbladder wall thickening up to 9 mm. No shadowing gallstones are identified. No pericholecystic fluid is seen. A sonographic Mariano's sign is reportedly absent. The common bile duct measures up to 0.4 cm in diameter. Pancreas: Visualized portions of the pancreatic head and body are normal in appearance. The splenic vein is patent. Right kidney: Survey images of the right kidney demonstrate normal size and echotexture. There is no hydronephrosis. Ascites: None. Pleural spaces: The right pleural effusion is noted. IMPRESSION: 1. The liver is enlarged and heterogeneous with evidence of diffuse hepatic metastatic disease. 2. Gallbladder wall thickening is nonspecific and likely related to hepatic pathology. 3. No gallstones are identified and there is no sonographic evidence of acute cholecystitis. 4. There is no intra or extrahepatic biliary ductal dilatation. 5. Right pleural effusion. ACT 112: Negative or not required by law. Electronically signed by: Jarred Zhu M.D. 01/15/2020 6:24 PM Dictated: 01/15/201820 Transcribed: 01/15/201820 ECG Data Attestation: I personally reviewed and interpreted this ECG as follows: Indication: + weakness Rate (beats per minute): 84 Rhythm: + atrial fibrillation ECG [place]: + Normal ECG ST segments: + Normal ST segments and + repolarization abnormalities ECG Findings: + Q waves; no PACs and no PVCs Comparison ECG Date: from (12/29/2019) Change: the following changes noted (Rate controlled atrial fibrillation has replaced ventricularly paced rhythm.) Blood Pressure Blood Pressure Findings: Normal blood pressure Blood Pressure Disposition: did not require urgent referral MDM Narrative This patient was evaluated and appeared to be in no significant distress. Patient's past medical records were reviewed and previous laboratory work reveals a total hemoglobin of 7.1 earlier today. IV access was obtained and laboratory work was drawn. An order for cardiac monitoring was placed and the patient is noted to be in rate controlled atrial fibrillation 84 bpm. Patient's laboratory work confirms elevated bilirubin at 7.0 with elevated transaminases. Ultrasound the right upper quadrant reveals metastatic disease in the liver without biliary ductal dilatation. There is nonspecific gallbladder wall thickening likely related to the hepatic pathology. Otherwise there is no evidence of acute cholecystitis. [facility] the patient for further management. Patient is aware of the plan and agrees. Impression & Plan Elevated bilirubin, Metastatic colon cancer to liver Discharge Plan Visit Data Chief Complaint: Abnormal Labs/Diagnostic Testing Stated Complaint: ABNORMAL LAB RESULTS, REFERRED BY JUJU NORIEGA ED Provider: Isis Gee Discharge Problem: Elevated bilirubin, Metastatic colon cancer to liver Forms Stand Alone Forms: My [facility] Prescriptions Prescriptions: No Action omeprazole 40 mg capsule,delayed release(DR/EC) 40 mg PO DAILY RF: 0 Eliquis 5 mg Tablet 5 mg PO BID RF: 0 cholecalciferol (vitamin D3) [Vitamin D3] 25 mcg (1,000 unit) Tablet 25 mcg PO BID RF: 0
[2020-01-15] MEDS ORDERED: IOVERSOL 100ml IV ONE (20:51)
[2020-01-15] MEDS: APIXABAN 5 MG TABLET PO SCH (21:24)
[2020-01-15] MEDS: CHOLECALCIFEROL 1,000 UNITS 25 MCG TAB PO SCH (21:24)
--- NOTE | 2020-01-15 23:39 | History & Physical Report ---
Date of Service January 15, 2020 Assessment & Plan (1) Elevated LFTs: No obstruction on ultrasound liver. Discussed with Dr. Gross and recommended MRCP to be sure of no obstruction. Possibly side effects of chemotherapy versus worsening metastatic disease. Repeat CMP in a.m. (2) Metastatic colon cancer to liver: Discussed with Dr. Barrientos and recommended repeating CEA and CT A/P with IV contrast to assess for progression of metastatic disease. (3) Paroxysmal atrial fibrillation: Continue Eliquis 5 mg twice daily. Currently in normal sinus rhythm. (4) Abnormal EKG: Changes secondary to non-paced rhythm. No chest pain or shortness of breath to suggest ACS. (5) DVT prophylaxis: Eliquis as above Admission and Anticipated Discharge Date Admission Date: January 15, 2020 History of Present Illness Chief Complaint: Abnormal outpatient labs Primary Care Provider: IMELDA Thompson Brandon Gibson is a 79-year-old male with stage IV colon adenocarcinoma who presents to the ER on the advice of his oncologist due to elevated LFTs and concern for biliary obstructive etiology. The patient denies any fevers, chills, altered mental state, worsening right upper quadrant pain. He does note yellowing of his skin over the last week. 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 He reports having 1 dose of chemotherapy and was due a second dose tomorrow. Allergies Allergy/AdvReac Type Severity Reaction Status Date / Time No Known Allergies Allergy Verified 01/15/20 19:04 Home Medications Home Medications Medication Instructions Recorded Confirmed Type Eliquis 5 mg PO BID 04/26/19 01/15/20 History cholecalciferol (vitamin D3) 25 mcg PO BID 04/26/19 01/15/20 History [Vitamin D3] omeprazole 40 mg capsule,delayed 40 mg PO DAILY 12/26/19 01/15/20 History release Past Med/Surg History Medical History (Updated 01/16/20 @ 10:22 by Allen Stubbs MD) Anemia Atrial fibrillation with slow ventricular response Colon cancer Elevated bilirubin Hyperlipemia Hypertension Metastatic cancer Pacemaker 2019 Transaminitis Social History (Updated 12/26/19 @ 14:05 by Amena Andrews RN) Smoking Status: Never smoker Do You Dip or Chew Tobacco: No; Hx Alcohol Use: Yes Alcohol type: wine Alcohol type Comment: 2 vu a day A lcohol Intake Frequency: 4 or More x per/Week Hx Substance Use: No Preferred Language: Maori Communication Ability: Effective 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 Beliefs That Will Affect Care: None marital status: Current Living Situation: Alone current occupational status: retired How many Children do You have: 0 Feels Safe at Home: Yes Review of Systems Review of Systems: All systems reviewed & are unremarkable except as noted in HPI & below Constitutional: + weight loss Physical Exam Constitutional: well developed; + not well nourished and no acute distress Eyes: sclerae not anicteric and normal pupil size ENMT: external ear and nose normal, oropharynx normal Neck: trachea midline, no thyromegaly Respiratory: normal respiratory effort, lungs clear to auscultation Cardiovascular: Rate/Rhythm: regular rate and regular rhythm Heart Sounds: no murmur Extremities: normal capillary refill; no calf tenderness and no pedal edema Gastrointestinal (Abdomen): Inspection/Auscultation: + abdomen distended and normal bowel sounds Percussion/Palpation: abdomen soft and + hepatomegaly; abdomen nontender, no guarding and abdomen not rigid Skin: + jaundice Neurologic: moves all extremities and awake; not confused Psychiatric: A+Ox3, euthymic affect Genitourinary: no CVA tenderness Results & Data Results & Data ([facility]) Vital Signs (Past 12 Hours) Vital Signs Temp Pulse Pulse Resp BP BP Pulse Ox 01/15/20 20:00 36.8 C 84 18 133/77 96 01/15/20 19:30 72 20 123/77 95 01/15/20 18:27 78 16 113/86 96 01/15/20 17:30 77 18 125/78 95 01/15/20 15:59 36.8 C 90 18 129/79 96 Diagnostic Findings ULTRASOUND RIGHT UPPER QUADRANT ABDOMEN IMPRESSION: 1. The liver is enlarged and heterogeneous with evidence of diffuse hepatic metastatic disease. 2. Gallbladder wall thickening is nonspecific and likely related to hepatic pathology. 3. No gallstones are identified and there is no sonographic evidence of acute cholecystitis. 4. There is no intra or extrahepatic biliary ductal dilatation. 5. Right pleural effusion. XR chest 1V portable IMPRESSION: 1. Mildly improved aeration of the lung bases. 2. Bilateral reticular nodular opacities are redemonstrated compatible with pulmonary metastasis. ECG Indication: other Rate (beats per minute): 84 Rhythm: normal sinus Findings: + ST depression (Septal) and + T-wave inversion (Septal) Comparison ECG Date: from (2019) Change: the following changes noted (Sinus rhythm replaced ventricular pacemaker) Code Status & VTE Plan Code Status DNR/DNI VTE Prophylaxis Plan VTE Prophylaxis will be ordered: Yes PG Care Time/CCT Total # of Minutes Spent Total Time Spent with Patient: Total time spent is greater than 50% in coordination of care (as documented) at patient's floor/unit and/or counseling patient: Coding Level of Care Code 03999 Initial Inpt Care Lvl 3 Diagnoses Elevated LFTs R79.89 Metastatic colon cancer to liver C18.9; C78.7 Paroxysmal atrial fibrillation I48.0 Abnormal EKG R94.31 DVT prophylaxis Z29.9
[2020-01-16] MEDS ORDERED: HEPARIN 100 UNIT/ML 5ML FLUSH FLUSH PRN (00:09)
--- NOTE | 2020-01-16 06:54 | CT Scan Report ---
CT abd pelvis IV con only CLINICAL HISTORY: Colon carcinoma. Evaluate for disease progression COMPARISON STUDY: CT scan dated 12/29/2019 TECHNIQUE: The patient was scanned in a dynamic helical fashion during intravenous administration of 93 cc of Optiray 320 A dose lowering technique was utilized adhering to the principles of ALARA. CT DOSE: 552.34 mGy.cm FINDINGS: Lower chest: There are innumerable bilateral pulmonary nodules consistent with widespread pulmonary m etastasis. There is a small right pleural effusion. A small pericardial effusion. Liver: There are innumerable space occupying hepatic masses indicative of widespread metastasis. Thes e remain similar to the preceding study. Gallbladder: Unremarkable. Spleen: Normal in size and attenuation. Pancreas: Unremarkable. Adrenal glands: There is mild adrenal gland thickening Kidneys: There are large left renal cysts measuring up to 13.6 cm in diameter. No solid renal masses are visualized. Bowel: There is a 57 mm mass within the proximal descending colon consistent with a carcinoma. There is no current evidence of bowel obstruction. Peritoneum: There is no intraperitoneal free air or abdominal ascites. Vasculature: The abdominal aorta is normal in course and caliber. Adenopathy: There are enlarged lymph nodes in the gastrohepatic ligament. There are enlarged aortocav al lymph nodes. There are enlarged lymph nodes within the mesentery adjacent to the ascending colon m ass. Pelvic viscera: The prostate is enlarged Skeletal structures: No destructive osseous lesions are seen. IMPRESSION: 1. 57 mm descending colon mass consistent with carcinoma 2. Stable widespread hepatic metastasis 3. Multiple pulmonary nodules consistent with metastatic disease, similar to the prior study 4. Pathologic adenopathy, similar to the prior study. ACT 112: Negative or not required by law. Electronically signed by: Mateo Coates M.D. 01/16/2020 6:52 AM
[2020-01-16 07:43] LABS: Basophils # (auto) 0.02 K/uL (0-0.2); Basophils % (auto) 0.2 %; Eosinophils # (auto) 0.14 K/uL (0-0.5); Eosinophils % (auto) 1.7 %; Hematocrit (blood only) 34.8 % (42-52); Hemoglobin 11.3 g/dL (14.0-18.0); Immature Granulocytes # (auto) 0.05 K/uL (0.00-0.02); Immature Granulocytes % (auto) 0.6 %; Lymphocytes # (auto) 2.94 K/uL (1.2-3.4); Mean Corpuscular Hemoglobin 29.2 pg (25-34); Mean Corpuscular Hgb Conc 32.5 g/dL (32-36); Mean Corpuscular Volume 89.9 fL (80-100); Mean Platelet Volume 10.5 fL (7.4-10.4); Monocytes # (auto) 0.71 K/uL (0.11-0.59); Monocytes % (auto) 8.5 %; Neutrophils # (auto) 4.54 K/uL (1.4-6.5); Platelet Count 366 K/uL (130-400); RDW Coefficient of Variation 19.1 % (11.5-14.5); RDW Standard Deviation 60.6 fL (36.4-46.3); Red Blood Count 3.87 M/uL (4.7-6.1)
[2020-01-16] MEDS: CHOLECALCIFEROL 1,000 UNITS 25 MCG TAB PO SCH (08:02)
[2020-01-16] MEDS: APIXABAN 5 MG TABLET PO SCH (08:02)
[2020-01-16 08:21] LABS: Albumin Level 2.3 gm/dl (3.4-5.0); BUN Creatinine Ratio 21.1 (10-20); Bilirubin Direct 5.3 mg/dl (0-0.2); Bilirubin,Total 6.9 mg/dl (0.2-1); Calcium 8.7 mg/dl (8.5-10.1); Creatinine Clr Calc Pharmacy 106.6 ml/min; Est GFR (African American) 112.4; Potassium 3.7 mmol/L (3.5-5.1); Total Protein 6.2 gm/dl (6.4-8.2)
[2020-01-16] MEDS ORDERED: PANTOprazole 40 MG TAB PO SCH (09:00)
--- NOTE | 2020-01-16 09:57 | Consultation Report ---
DATE OF CONSULTATION: 01/16/2020 REASON FOR CONSULTATION: Elevated bilirubin and liver transaminases in a 79-year-old gentleman with metastatic colorectal cancer. HISTORY OF PRESENT ILLNESS: The patient is a very pleasant 79-year-old gentleman who presented to [facility]'s Emergency Room at our office's insistence because of abnormal laboratory values. This gentleman was diagnosed with metastatic colorectal cancer in mid 11/2019 including both hepatic and pulmonary metastatic disease. He was recently started on FOLFOX with bevacizumab, received 1 dose roughly 2 weeks ago. For the most part did very well with chemotherapy and had actually been in our office to have his pretreatment laboratories for chemotherapy scheduled today. Again, clinically he has felt relatively well with occasional right upper quadrant pain but really has maintained his weight and appetite throughout the initial phase of treatment. He offers no complaint at bedside. Clearly, the lab values concern including elevated bilirubin and liver transaminases. CT scan of the abdomen and pelvis again revealed his primary colonic mass as well as widespread hepatic metastasis and multiple pulmonary nodules, similar to prior study. PAST MEDICAL HISTORY: Significant for chronic anemia, atrial fibrillation, metastatic colorectal cancer, hyperlipidemia, hypertension, pacemaker placement in 2019. MEDICATIONS: Prior to admission, Eliquis 5 mg p.o. b.i.d., cholecalciferol 25 mcg p.o. b.i.d., omeprazole 40 mg p.o. every day. ALLERGIES: No known drug allergies. 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 He is a nonsmoker and consumes 2 glasses of wine on a daily basis. FAMILY HISTORY: No direct family history of colorectal cancer. REVIEW OF SYSTEMS: As per HPI. GENERAL: Negative for fevers, chills or sweats. He is not anorexic or losing weight. SKIN: No rashes or lesions. No evidence of jaundice. HEENT: Negative for headaches, lightheadedness or dizziness. No visual or hearing deficits. No sinus symptoms, sore throat or dysphagia. LYMPH: No history of lymphoproliferative disease. CARDIAC: No current angina or palpitations. The patient has history of atrial fibrillation with slow ventricular response. PULMONARY: Negative for COPD. He is not acutely short of breath, dyspneic or orthopneic. No cough or hemoptysis. GASTROINTESTINAL: Occasional right upper quadrant abdominal pain, but otherwise no current nausea or vomiting. No diarrhea or constipation, hematochezia or melena stools. GENITOURINARY: No hematuria, dysuria, urinary incontinence. PSYCHIATRIC: Negative for anxiety, depression or psychoses. ENDOCRINE: Negative for diabetes or thyroid disease. NEUROLOGIC: Negative for seizure, stroke, or migraine headaches. HEMATOLOGIC: Positive for mild normocytic normochromic anemia. PHYSICAL EXAMINATION: GENERAL: A very pleasant 79-year-old gentleman, awake, alert and appropriate, in no acute distress. VITAL SIGNS: Temperature 36.8, pulse 68, respiratory rate 18, blood pressure 126/75. SKIN: Warm, dry, noncyanotic. Again, could not appreciate overt jaundice. HEENT: Head is atraumatic and normocephalic. Eyes: PERRLA, EOMI. Sclerae are nonicteric. Nares are patent without rhinorrhea or discharge. Throat is clear. Tongue is midline. Mucous membranes are moist. NECK: Supple without JVD or thyromegaly. LYMPHATICS: No cervical, supraclavicular, axillary or inguinal palpable nodes. HEART: Regular rate and rhythm. No clicks, rubs, murmurs or gallops. LUNGS: Clear to auscultation bilaterally. ABDOMEN: Soft, nontender, nondistended, without palpable hepatosplenomegaly. EXTREMITIES: No calf tenderness or swelling. No clubbing, cyanosis or edema. Pulses and strength are equal in all 4 quadrants. NEUROLOGICALLY: He is awake, alert and oriented x3. Cranial nerves are intact. LABORATORY DATA: WBC count 10,260, hemoglobin 11.6, platelet count 347,000. Sodium 139, potassium 3.7, chloride 107, carbon dioxide 25, creatinine 0.62, BUN 16, total bilirubin 7, direct bilirubin 5.4, AST 175, ALT 167, alkaline phosphatase markedly elevated at 1030. Albumin 2.3. RADIOGRAPHIC DATA: Ultrasound of the liver. Liver is enlarged heterogeneous with evidence of diffuse hepatic metastatic disease, gallbladder wall thickening, nonspecific, likely due to hepatic pathology. No gallstones are identified. No sonographic evidence of acute cholecystitis. IMPRESSION: 1. Hyperbilirubinemia. 2. Elevated liver transaminases. 3. Atrial fibrillation by history. 4. Metastatic colorectal cancer (hepatic and pulmonary mets). PLAN: The patient is a pleasant unfortunate 79-year-old gentleman recently diagnosed with end-stage metastatic colorectal cancer. He had begun a combination oxaliplatin, 5-FU and leucovorin in conjunction with bevacizumab 2 weeks prior. The patient's transaminases and bilirubin had risen precipitously during that time. The patient is otherwise asymptomatic. Thus far, radiographic evidence does not point to a hepatic outlet obstruction and therefore need to carefully consider drug toxicity, perhaps oxaliplatin as the inciting agent. This gentleman currently feels well and thus do not feel the need to keep him hospitalized any longer than necessary. His second course of chemotherapy was scheduled for today and will be held. Thus, we will wait another 2-week interval and reevaluate the patient prior to reinitiation of chemotherapy, and may consider reducing oxaliplatin dose moving forward. I have nothing further to add at this time. If there are any questions or concerns, feel free to contact me at any time.
--- NOTE | 2020-01-16 12:24 | Magnetic Resonance Report ---
MR MRCP CLINICAL HISTORY: Metastatic disease to the liver. Abnormal liver function tests. Possible biliary ob struction. COMPARISON STUDY: CT scan dated 01/15/2020 FINDINGS: A breath-hold MRCP was performed. MIP imaging was acquired. There are innumerable space occupying hepatic masses consistent with extensive hepatic metastasis. There are multiple large left renal cysts measuring up to 12.6 cm in diameter. There is mild splenomegaly (13.2 cm. There are pulmonary nodules consistent with metastatic disease. There is borderline gallbladder wall thickening. No gallbladder calculi are visualized. There is no pancreatic ductal dilatation. Intrahepatic biliary ducts are distorted due to the multiple space-occupying hepatic masses. There is no significant ductal dilatation. There is no common bile duct dilatation. There is a small right pleural effusion IMPRESSION: 1. Hepatic biliary ductal distortion secondary to multiple hepatic masses. No significant intra or ex trahepatic biliary ductal dilatation 2. Mild splenomegaly 3. Multiple large left renal cysts 4. No ductal calculi identified 5. Extensive hepatic metastasis 6. Multiple nodules consistent with pulmonary metastasis ACT 112: Negative or not required by law. Electronically signed by: Mateo Coates M.D. 01/16/2020 12:23 PM
--- NOTE | 2020-01-16 12:55 | Discharge Summary ---
Date of Service January 16, 2020 Admission HPI Per Admitting Provider Brandon Gibson is a 79-year-old male with stage IV colon adenocarcinoma who presents to the ER on the advice of his oncologist due to elevated LFTs and concern for biliary obstructive etiology. The patient denies any fevers, chills, altered mental state, worsening right upper quadrant pain. He does note yellowing of his skin over the last week. 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 He reports having 1 dose of chemotherapy and was due a second dose tomorrow. Principal Diagnosis Drug induced liver injury from chemotherapy Discharge Exam Constitutional WD/WN, vitals as above Eyes PERRL and EOM intact bilaterally; sclerae not anicteric ENMT external ear and nose normal, oropharynx normal Neck trachea midline, no thyromegaly Respiratory normal respiratory effort, lungs clear to auscultation Cardiovascular RRR, no murmur, no edema Gastrointestinal (Abdomen) normal bowel sounds, soft, nontender, no hepatosplenomegaly Musculoskeletal no cyanosis or clubbing, extremities motor strength 5/5 Skin normal turgor and + jaundice; no rashes Neurologic patellar DTR's 2+ bilat, sensation intact and PERRL, EOMI, accommodation nl, no face palsy, no dysarthria Psychiatric A+Ox3, euthymic affect Lymphatic no cervical or axillary lymphadenopathy Discharge Data Allergies Allergy/AdvReac Type Severity Reaction Status Date / Time No Known Allergies Allergy Verified 01/15/20 19:04 Consultations 01/15/20 18:44 ED Decision to Admit Stat 01/15/20 23:39 Consult Oncology Routine Ordered Studies 01/15/20 16:13 US abdomen limited Stat 01/15/20 20:14 CT abd pelvis IV con only Routine 01/16/20 01:46 MR MRCP Stat Hospital Course (1) Elevated LFTs: No obstruction on ultrasound liver MRCP shows no obstruction, no stones discussed with GI and with oncology this most likely represents acute drug induced liver injury from chemotherapy patient eating and drinking well, no abdominal pain or nausea, he is making urine and moving bowels Dr Barrientos will delay chemotherapy for a week plan for labs next week, follow up with PCP and with Dr. Barrientos (2) Metastatic colon cancer to liver: progressive disease with metastatic lesions in liver and lungs large mass in colon he is eating and drinking, no pain, only here due to elevated bilirubin follow up with Dr. Barrientos in two weeks (3) Paroxysmal atrial fibrillation: Continue Eliquis 5 mg twice daily. Currently in normal sinus rhythm. (4) Abnormal EKG: Changes secondary to non-paced rhythm. No chest pain or shortness of breath to suggest ACS. Total Time Total Time Spent Total Time Spent (In Minutes): 31 minutes Total Time Includes: Examination of the Patient, Discharge Planning, Medication Reconciliation and Communication With Other Providers (Dr. Barrientos) Discharge Plan Discharge Items Patient Disposition: Home - Self-Care Reason For Visit: ELEVATED EFTS,METASTATIC Discharge Diagnosis: Elevated alkaline phosphatase and bilirubin, likely from medications Metastatic colon cancer Condition on Discharge: Good Goals: hold on chemotherapy follow up with Dr. Barrientos in two weeks stay well nourished, well hydrated, stay active Activity: Resume your previous activity Driving/Machine Use: No limitations Weightbearing: Full weightbearing Non-emergency contact: Primary Care Provider and Oncologist Call non-emergency contact if: you have any medication questions and your symptoms worsen Follow-up/Referrals: Darrell Barrientos V., [Physician] - (Please and schedule an appt, with Dr. Barrientos within 2 weeks. ) Mena Whittaker CRNP [Primary Care Provider] - 01/19/20 10:50 am (We scheduled you an appt with Kirstie Whittaker on TuesdayJan 18 at 1050am. Please arrive 15 minutes prior to your appt. [facility] [address] ) Diet: Regular Ambulatory Orders: Comprehensive Metabolic Panel (Routine) Timeframe: 1 Week Location: Determined by Patient Ordered By: Jean Marie Hutchison Attending Provider Instructions: Medications: no changes Elevated bilirubin and alkaline phosphatase most likely etiology is drug induced liver injury from chemotherapy CT and MRI of the liver show no signs of obstruction of the biliary ducts, no stones will repeat liver enzymes next week, follow up with Mena Whittaker recommend follow up with Dr. Barrientos in two weeks, he will likely adjust chemotherapy regimen Anemia: hemoglobin is stable at 11.3, okay to not take iron if it is causing side effects Pending Studies at Discharge: No Stand-Alone Forms: [employer], Smoking Cessation Medications and DC Order Prescriptions: Continued omeprazole 40 mg capsule,delayed release(DR/EC) 40 mg PO DAILY RF: 0 Eliquis 5 mg Tablet 5 mg PO BID RF: 0 cholecalciferol (vitamin D3) [Vitamin D3] 25 mcg (1,000 unit) Tablet 25 mcg PO BID RF: 0 Discharge Orders: Discharge Order (Routine); Ordered 01/16/20 Ordered By: Jean Marie Muniz Admission Data Admit Date/Time: 01/15/20 19:16 Attending Provider: Jean Marie Muniz Admit Provider: Allen Stubbs Primary Care Provider: Mena Whittaker Other Providers: Allen Stubbs ; Darrell Barrientos V. Other Interventions: Discharge Summary Assessment (RN) Last Done: 01/16/20 12:19 Coding Level of Care Code 30816 OBS Care - Discharge Diagnoses Elevated LFTs R79.89 Metastatic colon cancer to liver C18.9; C78.7 Paroxysmal atrial fibrillation I48.0 Abnormal EKG R94.31
--- NOTE | 2020-01-16 20:55 | Electrocardiogram Report ---
Test Reason : Blood Pressure : / mmHG Vent. Rate : 084 BPM Atrial Rate : 084 BPM P-R Int : 000 ms QRS Dur : 098 ms QT Int : 374 ms P-R-T Axes : 073 030 -73 degrees QTc Int : 441 ms Atrial fibrillation Incomplete right bundle branch block Abnormal ECG When compared with ECG of 29-DEC-2019 17:03, Ventricular pacing is no longer present Confirmed by Cornelius Israel ([id number]) on 01/16/2020 8:55:18 PM Referred By: Winter Henry Confirmed By:Cornelius Israel
== END 2020-01-16 15:13 | disposition home or self-care (01) ==
LOC: ED 15:57 → SUATTDRO 19:16 → 2N 19:16 → INTOOBSV 19:16 → 2N 19:45

== ENCOUNTER 2020-01-29 17:47 | Inpatient (IN) ==
[2020-01-29 19:17] LABS: Basophils # (auto) 0.02 K/uL (0-0.2); Basophils % (auto) 0.1 %; Eosinophils # (auto) 0.06 K/uL (0-0.5); Eosinophils % (auto) 0.4 %; Hematocrit (blood only) 41.6 % (42-52); Hemoglobin 14.2 g/dL (14.0-18.0); Immature Granulocytes # (auto) 0.27 K/uL (0.00-0.02); Immature Granulocytes % (auto) 1.7 %; Lymphocytes # (auto) 2.46 K/uL (1.2-3.4); Lymphocytes % (auto) 15.5 %; Mean Corpuscular Hemoglobin 31.6 pg (25-34); Mean Corpuscular Hgb Conc 34.1 g/dL (32-36); Mean Corpuscular Volume 92.4 fL (80-100); Mean Platelet Volume 10.5 fL (7.4-10.4); Monocytes # (auto) 1.32 K/uL (0.11-0.59); Monocytes % (auto) 8.3 %; Neutrophils # (auto) 11.72 K/uL (1.4-6.5); Platelet Count 441 K/uL (130-400); RDW Coefficient of Variation 21.4 % (11.5-14.5); RDW Standard Deviation 71.9 fL (36.4-46.3); White Blood Count 15.85 K/uL (4.8-10.8)
[2020-01-29] MEDS ORDERED: IOVERSOL 100ml IV ONE (19:20)
[2020-01-29 19:29] LABS: iSTAT Creatinine 0.8 mg/dl (0.6-1.3); iSTAT Ionized Calcium 1.09 mmol/l (1.12-1.32)
[2020-01-29] MEDS ORDERED: SODIUM CHLORIDE 0.9% 500 ML IV SCH (19:45)
--- NOTE | 2020-01-29 19:54 | CT Scan Report ---
ABDOMEN AND PELVIS CT WITH IV CONTRAST CT DOSE: 531.98 mGy.cm HISTORY: Patient presents with acute jaundice jaundice TECHNIQUE: Multiaxial CT images of the abdomen and pelvis were performed following the IV administrat ion of 94 cc of Optiray 320, A dose lowering technique was utilized adhering to the principles of [place]. COMPARISON STUDY: CT abdomen and pelvis 01/15/2020, MRCP 01/16/2020 FINDINGS: Small right and trace left pleural effusions. The right pleural effusion has slightly decreased in si ze. Right greater than left lung base pulmonary metastasis redemonstrated with largest mass on the ri ght measuring 4.1 cm. Nodular intralobular septal thickening suggestive of associated lymphangitic ca rcinomatosis. There is no pneumatosis or pneumoperitoneum. The imaged inferior cardiac chambers are u nremarkable. Small pericardial effusion. Partially imaged pacer leads. The spleen, and pancreas are unremarkable. Innumerable hepatic metastasis redemonstrated. Decompresse d gallbladder. There is mild intrahepatic biliary ductal prominence There is unchanged mild nodular t hickening of the left greater than right adrenal glands. Unremarkable right kidney. Left-sided renal cysts redemonstrated measuring up to 12.8 cm on the left. Prostamegaly. Unremarkable urinary bladder. Mixed plaque of the abdominal aorta without aneurysm. No adenopathy. Pathologic retroperitoneal lymp h nodes redemonstrated measuring up to 2.4 x 1.3 cm, image 161 series 3. Pathologic periportal/perica angelica lymph nodes are also present measuring up to 4.1 x 2.2 cm. Pathologic lymph nodes adjacent to the ascending colon redemonstrated. Pathologic lymph nodes are also seen adjacent to the descending thor acic aorta and within the gastrohepatic distribution. There is no bowel obstruction. Mild colonic diverticulosis. There is a mass of the ascending colon re demonstrated measuring 5.6 x 4.3 x 5.1 cm which results in apparent irregular luminal narrowing. No b owel obstruction. Small fat filled periumbilical hernia. Ill-defined stranding of the omentum with tr alexandro abdominal pelvic ascites. 5 mm omental nodule is seen on image 156 series 3 in the abdominal left upper quadrant. Soft tissues are unremarkable. Degenerative changes of the spine, pelvis and hips. S cattered ill-defined these are noted within the proximal femora, pelvis and lower thoracic vertebral bodies including a tiny lesion of the left iliac bone on image 231 series 3. Remote bilateral L5 pars defects with grade 2 anterolisthesis L5 on S1. Lumbar levoscoliosis. IMPRESSION: 1. Extensive hepatic metastasis with mild intrahepatic biliary ductal prominence. 2. Large irregular mass of the ascending colon is suggestive of colonic carcinoma. No bowel obstructi on. 3. Small right and trace left pleural effusions with pulmonary metastasis redemonstrated. 4. Lymphatic metastasis redemonstrated. 5. Trace abdominal pelvic ascites with equivocal peritoneal/omental carcinomatosis. 6. Subtle subcentimeter ill-defined scattered osseous lucencies are suspicious for lytic skeletal met astasis. 7. Additional findings as above. ACT 112: Negative or not required by law. The above report was generated using voice recognition software. It may contain grammatical, syntax o r spelling errors. Electronically signed by: Eduin Larsen M.D. 01/29/2020 7:53 PM
[2020-01-29 19:56] LABS: Bilirubin Direct 20.7 mg/dl (0-0.2)
[2020-01-29 20:01] LABS: Albumin Level 2.2 gm/dl (3.4-5.0); Bilirubin,Total 23.8 mg/dl (0.2-1); Calcium 9.9 mg/dl (8.5-10.1); Potassium 3.9 mmol/L (3.5-5.1)
[2020-01-29 20:40] LABS: INR 1.3 (0.9-1.1); Prothrombin Time 13.4 Seconds (9.0-12.0)
[2020-01-29] MEDS ORDERED: SODIUM CHLORIDE 0.9% 1000ML 1,000 ML IV SCH (21:00)
[2020-01-29 21:11] LABS: Anisocytosis Present
--- NOTE | 2020-01-29 21:24 | Emergency Department Note ---
ED Visit Note Patient seen in conjunction with Dr. bacon. please see his note for medical decision-making. . Resident Activity Tracking Resident Involvement: Resident Care Provided Care Provided: Adult ED
--- NOTE | 2020-01-29 22:13 | History & Physical Report ---
Date of Service January 29, 2020 Assessment & Plan (1) Elevated LFTs: Brandon Gibson Is a 79-year-old male with stage IV colon adenocarcinoma with known metastases to both the liver and the lungs and atrial fibrillation with slow ventricular response who presents to the ER at the advice of his chemotherapy clinic in the setting of pre-treatment discovery of significantly elevated LFTs, 1. Transaminitis and direct hyperbilirubinemia in the setting of stage IV colon adenocarcinoma with known metastases to both the liver and the lungs, alongside a leukocytosis w/ left shift - Clinically, patient reports feeling unchanged - AST 418 / ALT 255 / AlkPhos 137 / Alb 2.2 / TBili 23.8 / Direct Bili 20.7 -- Obstructive pattern - The source of this transaminitis and hyperbilirubinemia is likely multifactorial - On review of his CT today he does have innumerous hepatic metastases, which are likely contributing. Given his leukocytosis with left shift, even in the presence of some hemoconcentration, there is concern for a developing intra-abdominal infection as well. - CT of the abdomen and pelvis performed today was significant for extensive hepatic metastases with mild intrahepatic biliary duct prominence, a large irregular mass of the ascending colon, small right and left trace pleural effusions in the setting of known pulmonary metastases, trace abdominal pelvic ascites and peritoneal/omental carcinomatosis, and several small ill-defined scattered osseous lucencies that are suspicious for lytic skeletal metastases - Admitted approximately 1 week ago for transaminitis, at the time was thought to be due to drug-induced liver injury secondary to recent chemotherapy treatment. MRCP performed at that time was significant for biliary duct distortion but without any significant obstruction. - Oncology consulted - GI consulted to assess for possibility and/or usefulness of stenting/ERCP - NPO pending GI consultation - Should consider palliative / [id number] discussion moving forward 2. Mild leukocytosis with left shift - Leukocytosis with WBC 16, ANC 11.7, immature granulocytes 0.27 - Although it would appear that there is some evidence of hemoconcentration at play, these numbers likely represent a contribution of a developing intra- abdominal infection in a highly susceptible individual - Will initiate Zosyn for intraabdominal organism coverage until can be seen by GI 3. Chronic atrial fibrillation - Hold Eliquis 5mg PO b.i.d. for tonight - Initiate low-dose heparin gtt for tonight -- can continue home eliquis tomorrow morning if no procedure 4. 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 Of note, he was actually seen here about a week ago for transaminitis as well, and MRCP was significant for biliary distortion secondary to the known metastases, but no direct biliary obstruction. MRI/CT performed at this time was also suggestive of significant hepatic metastases. As such, It was thought that his transaminitis was likely secondary to drug-induced liver injury secondary to his chemotherapy. He denies any fevers chills or night sweats, but does endorse a mild dry cough over the last few days. He does endorse significant fatigue. No pain. He notes that his baseline appetite has been poor over the last several months, and occasionally associated with nausea and a sensation of feeling bloated, but no abdominal pain. No vomiting. No changes in bowel movement regularity since his last visit. Continues to endorse pale yellow stools. Also endorses dark yellow urine. Allergies Allergy/AdvReac Type Severity Reaction Status Date / Time No Known Allergies Allergy Verified 01/29/20 20:39 Home Medications Home Medications Medication Instructions Recorded Confirmed Type Eliquis 5 mg PO BID 04/26/19 01/29/20 History cholecalciferol (vitamin D3) 25 mcg PO BID 04/26/19 01/29/20 History [Vitamin D3] omeprazole 40 mg capsule,delayed 40 mg PO DAILY 12/26/19 01/29/20 History release Past Med/Surg History Medical History Anemia Atrial fibrillation with slow ventricular response Colon cancer Elevated bilirubin Hyperlipemia Hypertension Metastatic cancer Pacemaker 2019 Transaminitis Social History Smoking Status: Never smoker Hx Alcohol Use: No Hx Substance Use: No Preferred Language: Korean Communication Ability: Effective 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 On visual examination, it is clear that he is jaundiced diffusely and is also cachectic. He is speaking in full sentences without any respiratory difficulty, And otherwise appears relaxed. No acute distress. Alert and oriented. Eyes: Sclerae are deeply jaundiced bilaterally. Pupils are equal and reactive to light. ENMT: external ear and nose normal, oropharynx normal Neck: trachea midline, no thyromegaly Respiratory: normal respiratory effort, lungs clear to auscultation Cardiovascular: Normal rate with irregular rhythm. S1 and S2 present with no m/r/g. Gastrointestinal (Abdomen): There is mild tenderness to palpation in the right upper quadrant, as well as the left lower quadrant. No distention. Of note, his liver span does seem to extend at least 2 inches below the costal margin. Palpation does reveal intermittent masses throughout the left upper quadrant extending down to the left lower quadrant. Mariano's negative. Musculoskeletal: no cyanosis or clubbing, extremities motor strength 5/5 Skin: + jaundice Psychiatric: A+Ox3, euthymic affect Lymphatic: no cervical LAD Results & Data Results & Data ([facility]) Vital Signs (Past 12 Hours) Vital Signs Temp Pulse Pulse Resp BP BP Pulse Ox 01/29/20 21:09 85 16 119/80 98 01/29/20 19:48 89 16 177/89 H 95 01/29/20 18:05 36.5 C 72 16 105/68 96 Supervising Physician Co-Signing Physician Notes Attending addendum: I have physically seen this patient, have supervised the medical residents activities, and agree with the H&P unless as otherwise noted. Assessment and Plan: Colon mass with mets to liver, pulmonary, lymphatic system and lytic skeletal- Admit to medical surgical floor. Follow serial laboratories. N.p.o. Consult gastroenterology. Consult oncology Famotidine 20 mg IV every 12 hours Zofran 4 mg IV every 6 hours PRN Patient may ultimately benefit from palliative consult Neutrophilic leukocytosis, placed empirically on Zosyn Chronic atrial fibrillation/hypertension- Hold Eliquis for possible procedure in a.m. Start low-dose heparin infusion Remainder of orders and notations as noted Resident Activity Tracking Resident Involvement: Resident Care Provided Care Provided: Adult Hospital Medicine (1) Metastatic cancer Area of secondary neoplastic involvement: unspecified site Qualified Code(s): C79.9 - Secondary malignant neoplasm of unspecified site
--- NOTE | 2020-01-29 23:55 | Emergency Department Note ---
Impression & Plan Metastatic colon cancer to liver, Elevated bilirubin, Elevated LFTs, Jaundice ED Provider Note NAME: REGINALD REGAN AGE: 79 SEX: M ARRIVES VIA: Walk-In INFORMANT: Patient, ED PROVIDER(S): Pal Pedroza MD CHIEF COMPLAINT: Metastatic cancer, jaundice, worsening LFTs. PLAN: Disposition: Admit MEDICAL DECISION MAKING: The patient is a pleasant 79-year-old gentleman with a past medical history of stage IV colon adenocarcinoma with liver metastases who presents emergency department with worsening liver function tests and newly increased bilirubin jaundice. The patient reports feeling generally fatigued and weak but denies a ny fevers, chills, cough, congestion, vomiting, diarrhea, urinary symptoms. On arrival the patient is chronically ill-appearing but in no acute distress, afebrile stable vital signs. On exam the patient patient exhibits mild jaundice and scleral icterus. He has palpable hepatomegaly and otherwise abdomen is soft and nontender. WBC 15.8, nonspecific. H/H 14/41 similar to prior. Platelets 440 likely reactive and nonspecific. Chemistry without acidosis. Creatinine within normal limits per i-STAT given unable to results on lab chemistry due to icterus. LFTs are increased with AST, ALT 418 and 255, respectively approximately doubled from prior. Alk phos additionally elevated at 1300. Total bilirubin is 23.8 with direct bilirubin of 20.[address] ab pelvis was performed and demonstrates extensive hepatic metastases with intrahepatic biliary ductal prominence. Large irregular mass of the a sending colon suggestive of colonic carcinoma. There is trace abdominal ascites with equivocal peritoneal carcinomatosis. This patient was managed with the assistance of resident, Dr. Nancy Crabtree. I discussed the case with the resident, examined the patient, and confirm the findings and plan as documented in this note. Resident Dr. Crabtree, reviewed the case with Dr. Lazarus Lane who suggested that findings are likely suggestive of end-stage disease however agrees with admission and they will be available for inpatient team consultation to assess if there is any thought that the patient could benefit from intervention. Dr. Crabtree reviewd the case with eduardo Valencia admitting resident working with Dr. Phelan, [facility] hospitalist, who will evaluate the patient for admission. Triage Nursing notes reviewed and agree them. Prior medical records reviewed Vital Signs: reviewed and remarkable for no significant abnormalities Differential diagnosis: Infection, dehydration, metabolic abnormality, hypo/hyperglycemia, electrolyte disturbance, anemia, hypoxia, cardiac sources, intracerebral event, toxicologic, neurologic, as well as other pathologies. ER treatment provided: See below. Laboratory studies: See below Imaging studies: ABDOMEN AND PELVIS CT WITH IV CONTRAST CT DOSE: 531.98 mGy.cm HISTORY: Patient presents with acute jaundice jaundice TECHNIQUE: Multiaxial CT images of the abdomen and pelvis were performed following the IV administration of 94 cc of Optiray 320, A dose lowering technique was utilized adhering to the principles of ALARA. COMPARISON STUDY: CT abdomen and pelvis 01/15/2020, MRCP 01/16/2020 FINDINGS: Small right and trace left pleural effusions. The right pleural effusion has slightly decreased in size. Right greater than left lung base pulmonary metasta sis redemonstrated with largest mass on the right measuring 4.1 cm. Nodular intralobular septal thickening suggestive of associated lymphangitic carcinomatosis. There is no pneumatosis or pneumoperitoneum. The imaged inferior cardiac chambers are unremarkable. Small pericardial effusion. Partially imaged pacer leads. The spleen, and pancreas are unremarkable. Innumerable hepatic metastasis redemo nstrated. Decompressed gallbladder. There is mild intrahepatic biliary ductal prominence There is unchanged mild nodular thickening of the left greater than right adrenal glands. Unremarkable right kidney. Left-sided renal cysts redemonstrated measuring up to 12.8 cm on the left. Prostamegaly. Unremarkable urinary bladder. Mixed plaque of the abdominal aorta without aneurysm. No adenopathy. Pathologic retroperitoneal lymph nodes redemonstrated measuring up to 2.4 x 1.3 cm, image 161 series 3. Pathologic periportal/pericaval lymph nodes are also present measuring up to 4.1 x 2.2 cm. Pathologic lymph nodes adjacent to the ascending colon redemonstrated. Pathologic lymph nodes are also seen adj acent to the descending thoracic aorta and within the gastrohepatic distribution. There is no bowel obstruction. Mild colonic diverticulosis. There is a mass of the ascending colon redemonstrated measuring 5.6 x 4.3 x 5.1 cm which results in apparent irregular luminal narrowing. No bowel obstruction. Small fat filled periumbilical hernia. Ill-defined stranding of the omentum with trace abdominal pelvic ascites. 5 mm omental nodule is seen on image 156 series 3 in the abdominal left upper quadrant. Soft tissues are unremarkable. Degenerative changes of the spine, pelvis and hips. Scattered ill-defined these are noted within the proximal femora, pelvis and lower thoracic vertebral bodies including a tiny lesion of the left iliac bone on image 231 series 3. Remote bilateral L5 pars defects with grade 2 anterolisthesis L5 on S1. Lumbar levoscoliosis. IMPRESSION: 1. Extensive hepatic metastasis with mild intrahepatic biliary ductal prominence. 2. Large irregular mass of the ascending colon is suggestive of colonic carcinoma. No bowel obstruction. 3. Small right and trace left pleural effusions with pulmonary metastasis redemonstrated. 4. Lymphatic metastasis redemonstrated. 5. Trace abdominal pelvic ascites with equivocal peritoneal/omental carcinomatosis. 6. Subtle subcentimeter ill-defined scattered osseous lucencies are suspicious for lytic skeletal metastasis. 7. Additional findings as above. ACT 112: Negative or not required by law. The above report was generated using voice recognition software. It may contain grammatical, syntax or spelling errors. Electronically signed by: Eduin Larsen M.D. 01/29/2020 7:53 PM Consultation(s): Dr. Qiu, [place] gastroenterology Dr. Phelan, [facility] hospitalist HPI: The patient is a pleasant 79-year-old gentleman with a past medical history of stage IV colon adenocarcinoma with liver metastases who presents emergency department with worsening liver function tests and newly increased bilirubin jaundice. The patient reports feeling generally fatigued and weak but denies any fevers, chills, cough, congestion, vomiting, diarrhea, urinary symptoms. ROS: See above HPI for pertinent positives & negatives. A total of 10 systems reviewed and were otherwise negative. PAST MEDICAL HISTORY:See Below PAST SURGICAL HISTORY:See Below FAMILY HISTORY:See Below SOCIAL HISTORY:See Below HOME MEDICATIONS:See Below ALLERGIES:See Below VITALS:See Below PHYSICAL EXAMINATION: GENERAL: Awake, alert, chronically ill-appearing, in no distress HENT: Normocephalic, atraumatic. Oropharynx with dry mucous membranes and otherwise unremarkable. EYES: Normal conjunctiva. Sclera with mild icterus. NECK: Supple. No nuchal rigidity. FROM. No JVD. RESPIRATORY: Clear to auscultation. CARDIAC: Regular rate, normal rhythm. Extremities warm and well perfused. Pulses equal. ABDOMEN: Soft, non-distended. Hepatomegaly. No rebound or guarding. No masses. RECTAL: Deferred. MUSCULOSKELETAL: Chest examination reveals no tenderness. The back is symmet rical on inspection without obvious abnormality. There is no CVA tenderness to palpation. No joint edema. LOWER EXTREMITIES: Calves are equal size bilaterally and non-tender. No edema. No discoloration. NEURO: Normal sensorium. No sensory or motor deficits noted. SKIN: Mild jaundice noted. Warm, dry. 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 Services Consultant Required: No Beliefs That Will Affect Care: None marital status: Current Living Situation: Alone current occupational status: retired How many Children do You have: 0 Feels Safe at Home: Yes Allergies Allergies Allergy/AdvReac Type Severity Reaction Status Date / Time No Known Allergies Allergy Verified 01/29/20 20:39 Home Meds Home Medications Medication Instructions Recorded Confirmed Eliquis 5 mg PO BID 04/26/19 01/29/20 cholecalciferol (vitamin D3) 25 mcg PO BID 04/26/19 01/29/20 [Vitamin D3] omeprazole 40 mg capsule,delayed 40 mg PO DAILY 12/26/19 01/29/20 release Results & Data (ED) Vital Signs Vital Signs - 24 hr 01/29/20 18:05 01/29/20 19:48 01/29/20 21:09 Temperature 36.5 C Temperature Source Oral Pulse Rate 72 Pulse Rate [Right] 89 85 Pulse Rhythm [Right] Pulse Strength [Right] Respiratory Rate 16 16 16 Respiratory Effort / Characteristics Non-Labored Non-Labored Spontaneous Non-Labored Spontaneous Respiratory Depth Normal Normal Normal Blood Pressure 105/68 Blood Pressure [Right Arm] 177/89 H 119/80 Blood Pressure Mean 80 Blood Pressure Mean [Right Arm] 118 93 Blood Pressure Position [Right Arm] Lying Pulse Oximetry 96 95 98 Oxygen Delivery Method Room Air Room Air Room Air Sepsis Recent Fever Within 48 Hours No Sepsis New/Unexplained Change in Mental Status No Sepsis Action Taken by Nursing No Action Required 01/29/20 22:21 Temperature Temperature Source Pulse Rate Pulse Rate [Right] 84 Pulse Rhythm [Right] Regular Pulse Strength [Right] Normal Respiratory Rate 16 Respiratory Effort / Characteristics Non-Labored Spontaneous Respiratory Depth Normal Blood Pressure Blood Pressure [Right Arm] 119/80 Blood Pressure Mean Blood Pressure Mean [Right Arm] 93 Blood Pressure Position [Right Arm] Pulse Oximetry 98 Oxygen Delivery Method Room Air Sepsis Recent Fever Within 48 Hours Sepsis New/Unexplained Change in Mental Status Sepsis Action Taken by Nursing Laboratory Data Attestation: I reviewed the patient's lab results. Result diagrams: 01/29/20 19:07 01/29/20 19:07 Lab Results 01/29/20 01/29/20 01/29/20 Range/Units 19: 19:07 19:15 WBC 15.85 H (4.8-10.8) K/uL RBC 4.50 L (4.7-6.1) M/uL Hgb 14.2 (14.0-18.0) g/dL POC Hgb 15.0 (14.0-18.0) g/dl Hct 41.6 L (42-52) % POC Hct 44 (42-52) % MCV 92.4 (80-100) fL MCH 31.6 (25-34) pg MCHC 34.1 (32-36) g/dL RDW Std Deviation 71.9 H (36.4-46.3) fL RDW Coeff of Marcel 21.4 H (11.5-14.5) % Plt Count 441 H (130-400) K/uL MPV 10.5 H (7.4-10.4) fL Immature Gran % (Auto) 1.7 % Neut % (Auto) 74.0 % Lymph % (Auto) 15.5 % Latimer % (Auto) 8.3 % Eos % (Auto) 0.4 % Baso % (Auto) 0.1 % Neut # (Auto) 11.72 H (1.4-6.5) K/uL Lymph # (Auto) 2.46 (1.2-3.4) K/uL Latimer # (Auto) 1.32 H (0.11-0.59) K/uL Eos # (Auto) 0.06 (0-0.5) K/uL Baso # (Auto) 0.02 (0-0.2) K/uL Immature Gran # (Auto) 0.27 H (0.00-0.02) K/uL Anisocytosis Present PT (9.0-12.0) Seconds INR (0.9-1.1) POC Sodium 138 (135-144) mmol/L Sodium 138 (136-145) mmol/L POC Potassium 4.0 (3.3-5.0) mmol/L Potassium 3.9 (3.5-5.1) mmol/L POC Chloride 106 (101-112) mmol/L Chloride 105 (98-107) mmol/L Carbon Dioxide 23 (21-32) mmol/L POC Total CO2 21 L (24-31) mmol/L Anion Gap 10.0 (3-11) POC Anion Gap 16.0 (16-25) mmol/L POC BUN 17 (7-18) mg/dl BUN 16 (7-18) mg/dl Creatinine (0.6-1.4) mg/dl POC Creatinine 0.8 (0.6-1.3) mg/dl Est Cr Clr Drug Dosing ml/min Est GFR ( Amer) Est GFR (Non-Af Amer) BUN/Creatinine Ratio (10-20) Glucose 104 H (70-99) mg/dl POC Glucose (other) 106 H (70-99) mg/dl Calcium 9.9 (8.5-10.1) mg/dl POC Ioniz Calcium Leyla 1.09 L (1.12-1.32) mmol/l Total Bilirubin 23.8 H (0.2-1) mg/dl Direct Bilirubin 20.7 H (0-0.2) mg/dl AST 418 H (15-37) U/L ALT 255 H (12-78) U/L Alkaline Phosphatase 1373 H (45-117) U/L Total Protein (6.4-8.2) gm/dl Albumin 2.2 L (3.4-5.0) gm/dl Globulin (2.5-4.0) gm/dl Albumin/Globulin Ratio (0.9-2) Specimen Hemolysis Cancelled 01/29/20 Range/Units 20:19 WBC (4.8-10.8) K/uL RBC (4.7-6.1) M/uL Hgb (14.0-18.0) g/dL POC Hgb (14.0-18.0) g/dl Hct (42-52) % POC Hct (42-52) % MCV (80-100) fL MCH (25-34) pg MCHC (32-36) g/dL RDW Std Deviation (36.4-46.3) fL RDW Coeff of Marcel (11.5-14.5) % Plt Count (130-400) K/uL MPV (7.4-10.4) fL Immature Gran % (Auto) % Neut % (Auto) % Lymph % (Auto) % Latimer % (Auto) % Eos % (Auto) % Baso % (Auto) % Neut # (Auto) (1.4-6.5) K/uL Lymph # (Auto) (1.2-3.4) K/uL Latimer # (Auto) (0.11-0.59) K/uL Eos # (Auto) (0-0.5) K/uL Baso # (Auto) (0-0.2) K/uL Immature Gran # (Auto) (0.00-0.02) K/uL Anisocytosis PT 13.4 H (9.0-12.0) Seconds INR 1.3 H (0.9-1.1) POC Sodium (135-144) mmol/L Sodium (136-145) mmol/L POC Potassium (3.3-5.0) mmol/L Potassium (3.5-5.1) mmol/L POC Chloride (101-112) mmol/L Chloride (98-107) mmol/L Carbon Dioxide (21-32) mmol/L POC Total CO2 (24-31) mmol/L Anion Gap (3-11) POC Anion Gap (16-25) mmol/L POC BUN (7-18) mg/dl BUN (7-18) mg/dl Creatinine (0.6-1.4) mg/dl POC Creatinine (0.6-1.3) mg/dl Est Cr Clr Drug Dosing ml/min Est GFR ( Amer) Est GFR (Non-Af Amer) BUN/Creatinine Ratio (10-20) Glucose (70-99) mg/dl POC Glucose (other) (70-99) mg/dl Calcium (8.5-10.1) mg/dl POC Ioniz Calcium Leyla (1.12-1.32) mmol/l Total Bilirubin (0.2-1) mg/dl Direct Bilirubin (0-0.2) mg/dl AST (15-37) U/L ALT (12-78) U/L Alkaline Phosphatase (45-117) U/L Total Protein (6.4-8.2) gm/dl Albumin (3.4-5.0) gm/dl Globulin (2.5-4.0) gm/dl Albumin/Globulin Ratio (0.9-2) Specimen Hemolysis Administered Medications Lactated Ringer's (Lr) 1,000 mls @ 80 mls/hr IV .[id number] JOSÉ Stop: 02/29/20 00:35 Last Admin: 01/30/20 00:54 Dose: 80 mls/hr Documented by: [id number] Heparin Sodium/Dextrose (Heparin Sodium/Dextrose) 25,000 units in 500 mls @ 17 mls/hr IV .Q24H JOSÉ; Protocol Stop: 02/29/20 00:35 Last Admin: 01/30/20 02:23 Dose: 850 units/hr, 17 mls/hr Documented by: [id number] Cosigned by: [id number] Discontinued Medications Heparin Sodium/Dextrose (Heparin Iv Low Dose *No* Bolus) 1 ea IV Q15M JOSÉ; Protocol Stop: 02/29/20 00:35 Last Admin: 01/30/20 03:18 Dose: Not Given Documented by: [id number] Admin: 01/30/20 03:17 Dose: Not Given Documented by: [id number] Admin: 01/30/20 02:14 Dose: Not Given Documented by: [id number] Admin: 01/30/20 02:14 Dose: Not Given Documented by: [id number] Sodium Chloride (Nss) 500 mls @ 999 mls/hr IV .Q31M JOSÉ Stop: 01/29/20 20:15 Last Infusion: 01/29/20 20:41 Dose: 0 mls/hr Documented by: [id number] Admin: 01/29/20 19:41 Dose: 999 mls/hr Documented by: [id number] Sodium Chloride (Nss 1000ml) 1,000 mls @ 125 mls/hr IV .Q8H JOSÉ Stop: 02/28/20 20:59 Last Admin: 01/30/20 00:38 Dose: Not Given Documented by: [id number] Piperacillin Sod/Tazobactam (Sod 3.375 gm/ Dextrose) 115 mls @ 230 mls/hr IV TODAY@0100 [facility]; Protocol Stop: 01/30/20 01:29 Last Infusion: 01/30/20 01:48 Dose: 0 mls/hr Documented by: [id number] Admin: 01/30/20 01:16 Dose: 230 mls/hr Documented by: [id number] Ioversol (Ioversol 100ml) 93 ml IV ONCE ONE Stop: 01/29/20 19:21 Last Admin: 01/29/20 19:20 Dose: 1 ml Documented by: [id number] Blood Pressure Blood Pressure Findings: Normal blood pressure Blood Pressure Disposition: further management by hospitalist Discharge Plan Visit Data Chief Complaint: Abnormal Labs/Diagnostic Testing Stated Complaint: SORE THROAT ED Provider: Pal Pedroza ED Midlevel Provider: Nancy Crabtree Discharge Problem: Metastatic colon cancer to liver, Elevated bilirubin, Elevated LFTs, Jaundice Patient Disposition: Admitted As Inpatient Discharge Instructions Interventions: ED Discharge Assessment Last Done: 01/29/20 23:54
[2020-01-30] MEDS ORDERED: ACETAMINOPHEN 325 MG TAB PO PRN (00:36)
[2020-01-30] MEDS ORDERED: POLYETHYLENE (MIRALAX) 17 GM PACK PO PRN (00:36)
[2020-01-30] MEDS ORDERED: ONDANSETRON INJ 2 MG/ML 2 ML VIAL IV PRN (00:36)
[2020-01-30] MEDS ORDERED: PIPERACILL/TAZOBAC CONSULT ACTIVE PRN (00:36)
[2020-01-30] MEDS ORDERED: ALUMINUM/MAGNESIUM SUSP 30 ML UDC PO PRN (00:36)
[2020-01-30] MEDS ORDERED: HEPARIN SODIUM/DEXTROSE 25,000 UNITS/500 ML BAG IV SCH (00:36)
[2020-01-30] MEDS: LACTATED RINGER'S 1,000 ML IV SCH ×2 (00:54→14:13)
[2020-01-30] MEDS ORDERED: PIPERACILLIN/TAZOBACTAM 3.375 GM in DEXTROSE 5% 100 ML IV SCH (01:00)
[2020-01-30] MEDS ORDERED: HEPARIN 100 UNIT/ML 5ML FLUSH FLUSH PRN (01:31)
[2020-01-30] MEDS: Heparin IV Low Dose *NO* Bolus IV SCH ×4 (02:14→04:52)
[2020-01-30] MEDS: PIPERACILLIN/TAZOBACTAM 3.375 GM in DEXTROSE 5% 100 ML IV SCH ×3 (05:57→21:17)
[2020-01-30] MEDS: CHOLECALCIFEROL 1,000 UNITS 25 MCG TAB PO SCH ×2 (08:29→21:14)
[2020-01-30] MEDS: PANTOprazole 40 MG TAB PO SCH (08:29)
[2020-01-30 09:36] LABS: Partial Thromboplastin Ratio 1.9
[2020-01-30 09:41] LABS: Partial Thromboplastin Time 53.7 Seconds (21.0-31.0)
--- NOTE | 2020-01-30 10:13 | Consultation Report ---
DATE OF CONSULTATION: 01/30/2020 MEDICAL ONCOLOGY CONSULTATION REASON FOR CONSULTATION: Elevated bilirubin and liver transaminases in this pleasant but unfortunate 79-year-old gentleman with metastatic colorectal cancer. HISTORY OF PRESENT ILLNESS: The patient is a very pleasant, but unfortunate 79-year-old gentleman who was readmitted to [facility] because of persistently elevated LFTs and bilirubin. This gentleman was admitted back in early January for the same reason. Radiographically, there was no evidence of hepatic outlet obstruction and equated his elevated labs to possible drug toxicity. This gentleman has not received FOLFOX and bevacizumab since 01/02/2020 and thus doubt very much chemotherapy is involved. He continues to decline steadily unfortunately manifested by increased jaundice and anorexia along with weight loss. He has some diffuse abdominal pain, but otherwise no fevers, chills or sweats. This gentleman was originally diagnosed with metastatic colorectal cancer in mid 11/2019, which radiographically revealed both hepatic and pulmonary metastatic disease. Again, he was subsequently started on combination oxaliplatin, 5-FU, leucovorin and bevacizumab, receiving his first and only dose on 01/02/2020. He is readmitted to [facility] and Gastroenterology is on consult and we will await their recommendations moving forward. PAST MEDICAL HISTORY: Significant for chronic anemia, atrial fibrillation, metastatic colorectal cancer, hyperlipidemia, hypertension, pacemaker placement in 2019. MEDICATIONS: Prior to admission include omeprazole 40 mg p.o. daily, Eliquis 5 mg p.o. b.i.d., cholecalciferol 25 mcg p.o. b.i.d. ALLERGIES: No known drug allergies. 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 Nonsmoker. Consumes 2 glasses of wine on a daily basis. FAMILY HISTORY: No direct family history of colorectal cancer. REVIEW OF SYSTEMS: CONSTITUTIONAL: As per HPI. Most notably for increased jaundice, anorexia and weight loss. No fevers, chills or sweats. SKIN: No rash or lesions otherwise. No history of dermatoses. HEENT: Negative for headaches, lightheadedness or dizziness. No acute visual or hearing deficits. No sinus symptoms, sore throat or dysphagia. LYMPH: No history of lymphoproliferative disease. CARDIAC: The patient has history of atrial fibrillation with slow ventricular response. Negative for angina or palpitations. PULMONARY: Negative for history of COPD. He is not acutely short of breath, dyspneic or orthopneic. No cough or hemoptysis. GASTROINTESTINAL: Again, nonspecific abdominal pain. He denies any diarrhea or constipation at this time. No change in stool color or quality. GENITOURINARY: No hematuria, dysuria, urinary incontinence. PSYCHIATRIC: Negative for anxiety, depression or psychoses. MUSCULOSKELETAL: No focal muscle weakness or arthralgias. ENDOCRINE: Negative for diabetes or thyroid disease. NEUROLOGIC: Negative for seizure, stroke or migraine headache. HEMATOLOGIC: Positive for persistent mild normocytic normochromic anemia. PHYSICAL EXAMINATION: GENERAL: Very pleasant, but unfortunate 79-year-old, awake, alert and appropriate, in no acute distress. VITAL SIGNS: Temperature 36.7, pulse 83, respiratory rate 20, blood pressure 100/62. SKIN: Slightly jaundiced without rash or lesion otherwise. No petechiae or ecchymoses. HEENT: Head atraumatic, normocephalic. Eyes: PERRLA, EOMI. Sclerae slightly icteric. Nares patent without rhinorrhea or discharge. Throat is clear. Tongue is midline. Mucous membranes are moist. NECK: Supple without JVD or thyromegaly. LYMPH: No cervical or supraclavicular palpable nodes. HEART: Regular rate and rhythm. No clicks, rubs, murmurs or gallops. LUNGS: Clear to auscultation bilaterally. ABDOMEN: Soft, nontender, nondistended. EXTREMITIES: Musculoskeletal strength and pulses are equal in all 4 quadrants. No clubbing, cyanosis or edema. NEUROLOGICAL: He is awake, alert and oriented x3. Cranial nerves are grossly intact. LABORATORY DATA: WBC count 15,850, hemoglobin 14.2, platelet count 441,000, absolute neutrophil count 12,000. Chemistries: Sodium 138, potassium 3.9, chloride 105, carbon dioxide 23, creatinine 0.8, BUN 16. Total bilirubin 23.8, direct bilirubin 20.6, AST of 418, ALT 255, alkaline phosphatase 1373, albumin 2.2. RADIOGRAPHIC DATA: CT scan of the abdomen and pelvis again demonstrate extensive hepatic metastatic disease with mild intrahepatic biliary ductal prominence, large irregular mass in the ascending colon which is the primary tumor, small right and trace left pleural effusions with pulmonary metastatic disease redemonstrated, lymphatic metastatic disease redemonstrated. IMPRESSION: 1. Hyperbilirubinemia. 2. Elevated liver transaminases. 3. Hypoalbuminemia. 4. Anorexia and weight loss. 5. Metastatic colorectal cancer. 6. Status post FOLFOX chemotherapy x1 administered 01/02/2020. PLAN: The patient is a pleasant, very unfortunate 79-year-old gentleman who is in serious clinical decline with gross hepatic tumor burden, which I suspect has resulted in the laboratory anomalies. We will await GI's input, but I suspect this gentleman would probably need a percutaneous hepatic drain. He has only received one course of chemotherapy and his disease progresses forward. His prognosis is very poor at this point. I believe the patient would like to continue chemotherapy, but first and foremost need to normalize the bilirubin and liver transaminases if at all possible. We also should get dietary involved to work on his nutritional status, perhaps some intravenous albumin may prove to be helpful to prevent further decline moving forward. He does not have significant pain issues at this time. His peripheral blood counts do not require intervention at this time. Again, we will await GI's input. I am not very optimistic with this gentleman's recovery. May need to consider hospice. Thank you very much for allowing me to participate in his care and we will continue to follow him during his hospital stay.
--- NOTE | 2020-01-30 15:56 | Consultation Report ---
DATE OF CONSULTATION: 01/30/2020 GASTROINTESTINAL CONSULTATION NOTE REASON FOR EVALUATION: Jaundice. HISTORY OF PRESENT ILLNESS: The patient is a 79-year-old diagnosed in November with a large right-sided colon cancer. In evaluating his disease staging, he was found to have on CAT scan multiple pulmonary mets and multiple liver mets. He was felt not to be a surgical candidate for colon resection by the colorectal surgeons due to his metastatic disease and he underwent chemotherapy in mid December. He received one dose of chemotherapy, but subsequently developed abnormal liver tests. These liver tests have gotten progressively worse and he was hospitalized yesterday with a bilirubin of 24. An MRCP and CT scan of the abdomen have been performed and have shown multiple metastatic lesions in the liver, but no evidence of biliary obstruction mechanically. The bile duct and intrahepatic bile ducts are not dilated nor is his gallbladder making decompression not likely to improve his condition. Dr. Barrientos saw the patient since he has been hospitalized this morning and felt that chemotherapy was not etiologic in worsening his liver tests. PAST MEDICAL HISTORY: Remarkable for chronic atrial fibrillation -- on Eliquis as well as gastroesophageal reflux. He has hypertension, hyperlipidemia, has a pacemaker since 2019. SOCIAL HISTORY: The patient is and lives alone in one floor [place] with 3 bedrooms. His daughter lives in [facility] and was here today in the room when I saw him. The patient drinks occasional wine. Does not smoke, never has. HOME MEDICATIONS: Eliquis, vitamin D, omeprazole. ALLERGIES: None. PHYSICAL EXAMINATION: The patient is deeply jaundiced, but in no acute distress. He has an Dedtld-h-Oona in the right anterior chest receiving IV fluids. There is mild tenderness in the right upper abdomen with an enlarged liver 2-4 cm below the right costal margin. IMPRESSION AND PLAN: The patient has widely metastatic colon cancer, which is inoperable and he is not a candidate any longer for chemotherapy given his markedly abnormal liver tests. These liver test abnormalities appear to be due to replacement of the normal liver hepatocytes by malignant cells interfering with liver function rather than an obstructive cause for his jaundice; therefore placing an endoscopic stent or percutaneous biliary drainage would probably not be of any benefit and may increase his risk for complications. I did have a conversation with the patient and with his daughter present that his disease has progressed and is no longer surgically treatable and chemotherapy option is also probably no longer feasible either, and I would recommend that the patient consider palliative care in the form of hospice. To this end, I have recommended a palliative care consult and a rn coronary care unit consult, and I have ordered a regular diet.
--- NOTE | 2020-01-30 16:58 | Hospitalist Progress Note ---
Date of Service January 30, 2020 Assessment & Plan (1) Metastatic colon cancer to liver: Follows with Dr. Barrientos. - With Tbili as high as 24 on 01/28. - Seen by Dr. Gross; no single obstruction that could be relieved by biliary stent or percutaneous biliary drain. No intervention warranted. - Discussed with Dr. Barrientos; options are either treat through with FOLFOX or hospice. Patient considering options and will treat meet with palliative care tomorrow. - Continue antibiotics for now. (2) Hypertension: BP 100/65 today. - No home meds; possible prior diagnosis and no longer needed? (3) Atrial fibrillation with slow ventricular response: Permanent afib. - Switch back from heparin gtt to Eliquis. - No rate control needed. (4) DVT prophylaxis: Apixaban Admission and Anticipated Discharge Date Admission Date: January 29, 2020 Subjective No pain today. No improvement in jaundice. Reports no fevers/chills, chest pain, shortness of breath, abdominal pain, nausea, or vomiting. Physical Exam Constitutional: WD/WN, vitals as above Eyes: EOM intact bilaterally; no conjunctival abnormality ENMT: external ear and nose normal, oropharynx normal Neck: trachea midline, no thyromegaly normal visual inspection Respiratory: normal respiratory effort, lungs clear to auscultation no respiratory distress Cardiovascular: RRR, no murmur, no edema Gastrointestinal (Abdomen): Inspection/Auscultation: abdomen normal to inspection, + abdomen distended and normal bowel sounds Percussion/Palpation: abdomen soft; abdomen nontender, no guarding and abdomen not rigid Musculoskeletal: no cyanosis or clubbing, extremities motor strength 5/5 Skin: no rashes, warm and dry + jaundice Neurologic: moves all extremities and awake Psychiatric: Orientation: alert, oriented to person and cooperative Results & Data Results & Data ([facility]) Vital Signs (Past 12 Hours) Vital Signs Temp Pulse Pulse Resp BP BP Pulse Ox 01/30/20 16:31 84 01/30/20 15:36 36.7 C 79 20 98/64 L 96 01/30/20 12:24 84 01/30/20 11:49 36.2 C L 83 20 98/69 L 95 01/30/20 06:52 36.7 C 83 20 100/62 97 PG Care Time/CCT Total # of Minutes Spent Total Time Spent with Patient: Total time spent is greater than 50% in coordination of care (as documented) at patient's floor/unit and/or counseling patient: Coding Level of Care Code 48828 Subseq Hosp Care Lvl 2 Diagnoses Metastatic colon cancer to liver C18.9; C78.7 Hypertension I10 Atrial fibrillation with slow ventricular response I48.91 DVT prophylaxis Z29.9
[2020-01-30] MEDS ORDERED: APIXABAN 2.5 MG TAB PO SCH (18:00)
[2020-01-30] MEDS: APIXABAN 5 MG TABLET PO SCH (18:11)
--- NOTE | 2020-01-30 20:24 | Billing Data ---
Date of Service January 30, 2020 Coding Level of Care Code 40762 Initial Inpt Care Lvl 3
[2020-01-30] MEDS ORDERED: APIXABAN 5 MG TABLET PO SCH (21:00)
[2020-01-31] MEDS: PIPERACILLIN/TAZOBACTAM 3.375 GM in DEXTROSE 5% 100 ML IV SCH (05:36)
[2020-01-31 06:04] LABS: Hematocrit (blood only) 36.3 % (42-52); Hemoglobin 12.4 g/dL (14.0-18.0); Mean Corpuscular Hemoglobin 31.4 pg (25-34); Mean Corpuscular Hgb Conc 34.2 g/dL (32-36); Mean Corpuscular Volume 91.9 fL (80-100); Mean Platelet Volume 10.8 fL (7.4-10.4); Platelet Count 407 K/uL (130-400); RDW Coefficient of Variation 21.2 % (11.5-14.5); RDW Standard Deviation 70.7 fL (36.4-46.3); Red Blood Count 3.95 M/uL (4.7-6.1); White Blood Count 12.32 K/uL (4.8-10.8)
[2020-01-31 06:44] LABS: Alanine Aminotransferase 218 U/L (12-78); Albumin Level 1.7 gm/dl (3.4-5.0); Alkaline Phosphatase 1152 U/L (45-117); Aspartate Aminotransferase 391 U/L (15-37); Bilirubin,Total 21.8 mg/dl (0.2-1); Blood Urea Nitrogen 10 mg/dl (7-18); Calcium 8.4 mg/dl (8.5-10.1); Carbon Dioxide 23 mmol/L (21-32); Chloride 106 mmol/L (98-107); Glucose 75 mg/dl (70-99); Potassium 3.2 mmol/L (3.5-5.1); Sodium 139 mmol/L (136-145)
[2020-01-31] MEDS: Heparin IV Low Dose *NO* Bolus IV SCH (06:51)
[2020-01-31] MEDS: CHOLECALCIFEROL 1,000 UNITS 25 MCG TAB PO SCH (08:51)
[2020-01-31] MEDS: PANTOprazole 40 MG TAB PO SCH (08:51)
[2020-01-31] MEDS: APIXABAN 5 MG TABLET PO SCH (08:52)
[2020-01-31] MEDS ORDERED: BENZONATATE 100 MG CAPSULE PO PRN (08:56)
[2020-01-31] MEDS ORDERED: COUGH DROP (SUGAR FREE) LOZ 24 LOZ/1 BOX BUCCAL ONE (08:56)
--- NOTE | 2020-01-31 09:09 | Progress Notes ---
DATE: 01/31/2020 DIAGNOSES: 1. Hyperbilirubinemia. 2. Elevated liver transaminases. 3. Hypoalbuminemia. 4. Anorexia/weight loss. 5. Metastatic colorectal cancer. 6. Status post FOLFOX chemotherapy, administered 01/02/2020. SUBJECTIVE: The patient is a pleasant 79-year-old gentleman I saw and examined this morning at bedside. Read GI's input and reluctance to offer percutaneous hepatic drain. There is no obstruction by radiograph and therefore stenting is not an option. I agree with GI. His tumor burden is so great, probably would not yield much benefit. Engaged in conversation with the patient regarding plans moving forward. Provided the options of proceeding with salvage chemotherapy be it very risky versus embracing supportive care. The patient is inclined to head towards hospice in my estimation. He was very realistic and asked appropriate questions during this morning's encounter. He would like to be discharged home today. OBJECTIVE: GENERAL: A very pleasant 79-year-old gentleman, awake, alert and appropriate, in no acute distress. VITAL SIGNS: Temperature 37.2, pulse 81, respiratory rate 18, blood pressure 114/75. SKIN: Without rash or lesion. HEENT: Oral mucosa without buccal lesions or ulceration. HEART: Regular rate and rhythm. LUNGS: Clear to auscultation bilaterally. ABDOMEN: Soft, nontender. EXTREMITIES: No clubbing, cyanosis or edema. NEUROLOGICALLY: He is awake, alert and oriented x3. LABORATORY DATA: WBC count 12,320, hemoglobin 12.4, platelet count 407,000. Sodium 139, potassium 3.2, chloride 106, carbon dioxide 23, creatinine pending. BUN 10, AST 391, ALT 218, alkaline phosphatase 1152, albumin 1.7. IMPRESSION: 1. Hyperbilirubinemia. 2. Elevated liver transaminases. 3. Hypoalbuminemia. 4. Hypokalemia. 5. Anorexia/weight loss. 6. Metastatic colorectal cancer. PLAN: The patient is a very pleasant unfortunate 79-year-old gentleman with rapidly progressing metastatic colorectal cancer. Tumor burden is too grade in the liver to gain benefit from either stenting or percutaneous drain. Appreciate GI's input. Engaged in lengthy discussion regarding plans moving forward. The patient is inclined to pursue home hospice. I have discussed this with Dr. John Logan who will place order for a palliative consultation. I advised the patient I would be more than happy to help him with symptom management once discharged. He wants to take the next day or two to discuss with family. I have nothing further to add and will await his phone call once final decision is made. Thank you again for allowing me to participate in his care.
[2020-01-31] MEDS: HEPARIN 100 UNIT/ML 5ML FLUSH FLUSH PRN ×2 (09:37→13:20)
--- NOTE | 2020-01-31 16:08 | Discharge Summary ---
Date of Service January 31, 2020 Admission HPI Per Admitting Provider Brandon Gibson is a 79-year-old male with stage IV colon adenocarcinoma with known metastases to both the liver and the lungs and atrial fibrillation with slow ventricular response who presents to the ER on the advice of his chemotherapy clinic in the setting of elevated LFTs. Of note, he was actually seen here about a week ago for transaminitis as well, and MRCP was significant for biliary distortion secondary to the known metastases, but no direct biliary obstruction. MRI/CT performed at this time was also suggestive of significant hepatic metastases. As such, It was thought that his transaminitis was likely secondary to drug-induced liver injury secondary to his chemotherapy. He denies any fevers chills or night sweats, but does endorse a mild dry cough over the last few days. He does endorse significant fatigue. No pain. He notes that his baseline appetite has been poor over the last several months, and occasionally associated with nausea and a sensation of feeling bloated, but no abdominal alexis n. No vomiting. No changes in bowel movement regularity since his last visit. Continues to endorse pale yellow stools. Also endorses dark yellow urine. 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 Discharge Exam Constitutional WD/WN, vitals as above Eyes EOM intact bilaterally; no conjunctival abnormality ENMT external ear and nose normal, oropharynx normal Neck trachea midline, no thyromegaly normal visual inspection Respiratory normal respiratory effort, lungs clear to auscultation no respiratory distress Cardiovascular RRR, no murmur, no edema Gastrointestinal (Abdomen) Inspection/Auscultation: abdomen normal to inspection, + abdomen distended and normal bowel sounds Percussion/Palpation: abdomen soft; abdomen nontender, no guarding and abdomen not rigid Musculoskeletal no cyanosis or clubbing, extremities motor strength 5/5 Skin no rashes, warm and dry + jaundice Neurologic moves all extremities and awake Psychiatric Orientation: alert, oriented to person and cooperative Discharge Data Allergies Allergy/AdvReac Type Severity Reaction Status Date / Time No Known Allergies Allergy Verified 01/29/20 20:39 Consultations 01/29/20 20:52 ED Decision to Admit Stat 01/29/20 21:12 Consult Gastroenterology Routine 01/30/20 00:36 Consult Oncology Routine 01/30/20 15:04 Consult Case Management - Discharge Planning Routine Ordered Studies 01/29/20 18:57 CT abd pelvis IV con only Stat Hospital Course (1) Metastatic colon cancer to liver: Follows with Dr. Barrientos. - With Tbili as high as 24 on 01/28. - Seen by Dr. Gross; no single obstruction that could be relieved by biliary stent or percutaneous biliary drain. No intervention warranted. - Discussed with Dr. Barrientos; options are either treat through with FOLFOX or hospice. Patient considering options and will treat meet with palliative care tomorrow. - Discharged to hospice on 01/30. (2) Hypertension: BP 100/65 today. - No home meds; possible prior diagnosis and no longer needed? (3) Atrial fibrillation with slow ventricular response: Permanent afib. - Switch back from heparin gtt to Eliquis. - No rate control needed. 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 Gibson, You were admitted to the hospital with jaundice (yellowing of the skin) due to your liver cancer. Dr. Barrientos hoped that there was a way to lower some of your liver enzymes with a GI procedure; however, Dr. Gross did not feel that there was any way to improve this. Unfortunately, your liver has cancer in it, and this is causing your liver to shut down. In speaking with Dr. Barrientos, you have decided to go home and pursue comfort and hospice care. I am so sorry that we do not have further treatment options! I wish you peace and comfort at home. You will be in our thoughts. At this stage, I do not feel you need to take your Eliquis. As your liver has further trouble, your blood will become thinner as the liver stops making blood clotting factors. Given this, I think it might be best to stop the Eliquis to prevent bleeding. You can take your omeprazole if it helps with heart burn; you can decide this one on your own. Pending Studies at Discharge: No Stand-Alone Forms: My [facility] Medications and DC Order Prescriptions: Continued omeprazole 40 mg capsule,delayed release(DR/EC) 40 mg PO DAILY RF: 0 Discontinued Eliquis 5 mg Tablet 5 mg PO BID RF: 0 cholecalciferol (vitamin D3) [Vitamin D3] 25 mcg (1,000 unit) Tablet 25 mcg PO BID RF: 0 Discharge Orders: Discharge Order (Routine); Ordered 01/31/20 Ordered By: John Logan Admission Data Admit Date/Time: 01/29/20 23:29 Attending Provider: John Logan Admit Provider: Blair Savage Primary Care Provider: Mena Whittaker Other Providers: Darrell Barrientos V. ; John Logan ; Akshat Gross ; [facility] Other Interventions: Discharge Summary Assessment (RN) Last Done: 01/31/20 10:52 Coding Level of Care Code D/C Day Management >30 mins Diagnoses Metastatic colon cancer to liver C18.9; C78.7 Hypertension I10 Atrial fibrillation with slow ventricular response I48.91 DVT prophylaxis Z29.9
== END 2020-01-31 14:23 | disposition hospice, home (50) | DRG 436 ==
LOC: ED 17:47 → SUATTDRO 23:29 → 2W 23:29